=== PATIENT | female | born 1975 | race African-American/Black ===

== ENCOUNTER 2017-07-24 05:17 | Day surgery (SDC) | payer MEDICARE, MEDICAID ==
[2017-07-24] VITALS (8 sets, daily range): BP systolic 127–150; BP diastolic 75–82
[~2017-07-24] VITALS: Ht 162.6 cm; Wt 81.6 kg
[~2017-07-24 05:17] MED LIST: BENAZEPRIL HCL40 MG ORAL; CATAPRES0.1 MG ORAL; CLONIDINE0.1 MG ORAL; COLACE100 MG ORAL; COREG25 MG ORAL; COUMADIN10 MG ORAL; COUMADIN4 MG ORAL; HUMULIN 70100 UNIT/2 SUBQ; LIPITOR10 MG ORAL; METOPROLOL TART50 MG ORAL; MIRALAX17 GM ORAL; NIFEDICAL XL30 MG ORAL; NIFEDIPINE ER60 M2 ORAL; NORCO 5-325 TA1 EACH ORAL; NORVASC5 MG ORAL; NOVOLIN 70/305 UNIT1 SUBQ; OMEPRAZOLE20 M3 ORAL; PROTONIX40 M1 IV; PROTONIX40 MG ORAL; RANITIDINE HCL150 MG ORAL; REGLAN10 MG ORAL; RENVELA0.8 GM ORAL; RENVELA800 MG ORAL; SIMVASTATIN20 MG ORAL; SOMA250 MG PO; ZANTAC150 MG ORAL; ZOCOR20 MG ORAL; ZOFRAN ODT4 MG ORAL; ZOFRAN4 MG ORAL
[2017-07-24] MEDS ORDERED: Cyclopentolate 1% Opth Sol 2ml ONE (05:19)
[2017-07-24] MEDS ORDERED: Phenylephrine 2.5% Op 2ml Soln ONE (05:19)
[2017-07-24] MEDS ORDERED: Tropicamide 1% Opth 15ml Soln ONE (05:19)
[2017-07-24] MEDS ORDERED: Proparacaine 0.5% Opth Soln 15ml ONE (05:20)
[2017-07-24] MEDS ORDERED: Tropicamide 1% Opth 15ml Soln LEFT EYE SCH (06:00)
[2017-07-24] MEDS ORDERED: Cyclopentolate 1% Opth Sol 2ml LEFT EYE SCH (06:00)
[2017-07-24] MEDS ORDERED: Phenylephrine 2.5% Op 2ml Soln LEFT EYE SCH (06:00)
[2017-07-24] MEDS ORDERED: Proparacaine 0.5% Opth Soln 15ml LEFT EYE SCH (06:00)
[2017-07-24] MEDS ORDERED: BSS 500ml btl ONE (06:25)
[2017-07-24] MEDS ORDERED: Kenalog-40 1ml Vial ONE (06:26)
[2017-07-24] MEDS ORDERED: Pred Forte 1% Opth Susp 1ml ONE (06:26)
[2017-07-24] MEDS ORDERED: Maxitrol Opth Oint 3.5gm ONE (06:27)
[2017-07-24] MEDS ORDERED: Tetracaine 0.5% Opth 4ml Soln ONE (06:28)
[2017-07-24] MEDS ORDERED: EPINEPHrine 1mg/1ml Amp ONE (06:28)
[2017-07-24] MEDS ORDERED: Lidocaine 2% MPF 5ml Vial INJ ONE (06:28)
[2017-07-24] MEDS ORDERED: Dexamethasone 4mg/ml vial ONE (06:28)
[2017-07-24] MEDS ORDERED: Bupivacaine 0.75% 30ml vial INJ ONE (06:28)
[2017-07-24] MEDS ORDERED: BSS 15ml BTL ONE (06:28)
[2017-07-24] MEDS ORDERED: Povidone-Iodine 5% opth solution ONE (06:28)
[2017-07-24] MEDS ORDERED: Goniosol 2.5% Opth Soln - 15ml ONE (06:29)
--- NOTE | 2017-07-24 06:33 | Anethesia Preoperative Eval ---
Anesthesia Pre-op PMH/ROS General Date of Evaluation: Jul 24, 2017 Time of Evaluation: 06:31 Anesthesiologist: karen ASA Score: ASA 4 Mallampati Score Class I : Soft palate, uvula, fauces, pillars visible Class II: Soft palate, uvula, fauces visible Class III: Soft palate, base of uvula visible Class IV: Only hard plate visible Mallampati Classification: Class II Surgeon: xavi Diagnosis: hemorrhage left eye Surgical Procedure: vitrectomy Allergies: Coded Allergies: ASPIRIN (Verified Allergy, Severe, swallowing issue, 02/11/16) Past Medical History Cardiovascular: Reports: HTN, arrhythmia Pulmonary: Reports: asthma Gastrointestinal/Genitourinary: Reports: GERD, ESRD, other - gastritis Endocrine: Reports: hypothyroidism Musculoskeletal/Integumentary: Reports: other - amputations Other: obesity Anesthesia Pre-op Phys. Exam Physician Exam Last Vital Signs Date Time Temp Pulse Resp B/P (MAP) Pulse Ox O2 Delivery O2 Flow Rate FiO2 07/24/17 05:57 98.2 79 20 150/82 97 Room Air Constitutional: NAD Neurologic: CN 2-12 intact Cardiovascular: RRR, other - ghulam Respiratory: CTA Gastrointestinal: S/NT/ND Airway Exam Mallampati Score: Class II MO: full Neck: supple TMD: 2fb ROM: full Teeth: intact Anesthesia Pre-op A/P Labs Chemistry Test 07/24/17 05:50 Potassium Level Pending Risk Assessment & Plan Assessment: asa4 Plan: mac Status Change Before Surgery: No Pre-Antibiotics Drug: AVE Macias Jul 24, 2017 06:33
[2017-07-24] MEDS ORDERED: Sterile Water Irrig 1000ml IRRIG ONE (07:00)
[2017-07-24] MEDS ORDERED: fentaNYL 100 mcg/2 mL IV ONE (07:00)
[2017-07-24] MEDS ORDERED: Midazolam 2mg/2ml Inj ONE (07:00)
--- NOTE | 2017-07-24 07:19 | Pre-Procedure Note/Attestation ---
Pre-Procedure Note/Attestation Complete Prior to Procedure Planned Procedure: left Procedure Narrative: Vision loss due to VH OS Indications for Procedure Pre-Operative Diagnosis: PPV/EL/Gas OS Attestation I attest that I discussed the nature of the procedure; its benefits; risks and complications; and alternatives (and the risks and benefits of such alternatives ), prior to the procedure, with the patient (or the patient's legal civil rights representative). I attest that, if there was a reasonable possibility of needing a blood transfusion, the patient (or the patient's legal civil rights representative) was given the [facility] Services standardized written summary, pursuant to the Darin Amberley Blood Safety Act ([place] Health and Safety Code # 1645, as amended). I attest that I re-evaluated the patient just prior to the surgery and that there has been no change in the patient's H&P, except as documented below: Mikhail Cunningham M.D. Jul 24, 2017 07:19
--- NOTE | 2017-07-24 07:20 | Brief Operative Note ---
Immediate Post Operative Note Operative Note Pre-op Diagnosis: NCVH/PDR/TRD/Cataract OS Procedure: PPV/MP/EL/AFE/SO (1K) OS Post-op Diagnosis: Same Post-op Diagnosis: same as pre-op Surgeon: Marisa Anesthesia: local Specimen: none Complications: none Condition: stable Fluids: Minimal Estimated Blood Loss: minimal Drains: none Implant(s) used?: Yes - silicone oil Mikhail Cunningham M.D. Jul 24, 2017 07:20
--- NOTE | 2017-07-24 07:21 | Operative Note - PDOC ---
Operative Note Operative Note Pre-op Diagnosis: NCVH OS Procedure: PPV/EL/Gas OS Post-op Diagnosis: same as pre-op Anesthesia: local Specimen: none Complications: none Condition: stable Fluids: Minimal Estimated Blood Loss: minimal Drains: none Implant(s) used?: No Indications for Procedure Patient has decreased vision due to nonclearing vitreous hemorhage OS. Description of Procedure Location: [facility] [place] Pre-operative Diagnosis: 1. PDR/NCVH/TRD/Cataract, LEFT EYE Post-operative Diagnosis: Same Procedure: Pars plana vitrectomy, membrane peel, endolaser, air-fluid exchange , silicone oil (1K), LEFT EYE Surgeon: Mikhail Cunningham M.D. Anesthesia: Peribulbar Complications: None Indications for the procedure: The patient has vision loss due vitreous hemorrhage and presents today for surgery after review of the risks, benefits, alternative and signing informed consent into the medical chart. Procedure performed: The patient was met in the pre-operative area where informed consent was reviewed. The operative eye was verified, marked and dilated. The patient was transferred to the operative suite, where cardiopulmonary monitoring was established and peribulbar anesthetic was administered without complications. The eye was prepped and draped in sterile ophthalmic fashion. Under microscope visualization the 23 gauge infusion line was placed 4 millimeters inferotemporally. After placement of the tip in the vitreous cavity, the infusion line was turned on. The superotemporal and superonasal cannulas were placed. Under BIOM visualization, peripheral and core vitrectomy was performed. There was significant dense hemorrhage against the posterior lens capsule. As the vitreous hemorrhage was removed, active hemorrhage from the disc was noted. There was tractional detachment along the arcades. The membranes were peeled. Air-fluid exchange was performed due to active hemorrhaging. Endolaser was applied to the periphery. Fluid was filled and further vitrectomy was performed of the periphery, however, hemorrhage persisted. AFE was performed and SO was infused into the eye. The sclerotomies were sutured. The eye maintained normal intraocular pressure. Subconjunctival vancomycin and dexamethasone were administered. The lid speculum was removed. The eye was cleaned of prep and drape. Atropine drop and Maxitrol ointment was applied. A pressure patch was placed. The patient was turned over to the anesthesia team and transferred in stable condition to the PACU. Mikhail Cunningham M.D. Jul 24, 2017 07:21
[2017-07-24] MEDS ORDERED: DiphenhydrAMINE 50mg/ml Inj IVP PRN (07:45)
[2017-07-24] MEDS ORDERED: Midazolam 2mg/2ml Inj IVP PRN (07:45)
[2017-07-24] MEDS ORDERED: Atropine Inj 1mg/10ml Syr IV PRN (07:45)
[2017-07-24] MEDS ORDERED: fentaNYL 100 mcg/2 mL IV PRN (07:45)
--- NOTE | 2017-07-24 08:58 | Immediate Post-Op Evaluation ---
Immediate Post-Op Evalulation Immediate Post-Op Evalulation Procedure: vitrectomy left y Date of Evaluation: Jul 24, 2017 Time of Evaluation: 08:58 IV Fluids: 300ml ns Blood Products: none Estimated Blood Loss: negligible Blood Pressure Systolic: 134 Blood Pressure Diastolic: 78 Pulse Rate: 72 Respiratory Rate: 18 O2 Sat by Pulse Oximetry: 100 Temperature (Fahrenheit): 98.1 Pain Score (1-10): 0 Nausea: No Vomiting: No Complications none Patient Status: awake, reacts, patent Hydration Status: adequate Drug: AVE Macias Jul 24, 2017 08:58
--- NOTE | 2017-07-24 10:35 | 48 Hour Post Anesthesia Eval ---
Post Anesthesia Evaluation Procedure: vitrectomy left eye Date of Evaluation: Jul 24, 2017 Time of Evaluation: 10:34 Blood Pressure Systolic: 136 0: 77 Pulse Rate: 77 Respiratory Rate: 18 Temperature (Fahrenheit): 98.4 O2 Sat by Pulse Oximetry: 100 Airway: patent Nausea: No Vomiting: No Pain Intensity: 0 Hydration Status: adequate Cardiopulmonary Status: stable Mental Status/LOC: patient returned to baseline Post-Anesthesia Complications: none Follow-up care needed: N/A AVE CADET Jul 24, 2017 10:35
== END 2017-07-24 12:30 | disposition home or self-care (01) ==
LOC: SUR 05:17
DX: H43.12 Vitreous hemorrhage, left eye (principal); H54.7 Unspecified visual loss; H57.8 Other specified disorders of eye and adnexa; I10 Essential (primary) hypertension; K21.9 Gastro-esophageal reflux disease without esophagitis; I13.2 Hypertensive heart and chronic kidney disease with heart failure and with stage 5 chronic kidney disease, or end stage renal disease; E11.22 Type 2 diabetes mellitus with diabetic chronic kidney disease; N18.6 End stage renal disease; I50.22 Chronic systolic (congestive) heart failure; Z95.2 Presence of prosthetic heart valve; E66.9 Obesity, unspecified; Z68.30 Body mass index [BMI] 30.0-30.9, adult; I47.1 Supraventricular tachycardia; I73.9 Peripheral vascular disease, unspecified; E83.39 Other disorders of phosphorus metabolism; D50.9 Iron deficiency anemia, unspecified; M86.9 Osteomyelitis, unspecified; Z82.49 Family history of ischemic heart disease and other diseases of the circulatory system; Z83.3 Family history of diabetes mellitus; Z84.1 Family history of disorders of kidney and ureter; Z88.6 Allergy status to analgesic agent; Z90.721 Acquired absence of ovaries, unilateral; Z86.73 Personal history of transient ischemic attack (TIA), and cerebral infarction without residual deficits; Z90.49 Acquired absence of other specified parts of digestive tract; Z90.710 Acquired absence of both cervix and uterus; Z89.511 Acquired absence of right leg below knee; Z89.422 Acquired absence of other left toe(s); Z79.4 Long term (current) use of insulin; Z79.01 Long term (current) use of anticoagulants
CPT/HCPCS: 67041; 82962; J0171; J1100; J2250; J2405; J3010; J3370; J3490; 94003; 94150

== ENCOUNTER 2017-12-16 08:46 | Day surgery (SDC) | payer MEDICARE, MEDICAID ==
[~2017-12-16] VITALS: Ht 162.6 cm; Wt 77.1 kg
[2017-12-16] VITALS (8 sets, daily range): BP systolic 144–164; BP diastolic 81–90
[2017-12-16] MEDS ORDERED: Proparacaine 0.5% Opth Soln 15ml ONE (09:29)
[2017-12-16] MEDS ORDERED: Phenylephrine 2.5% Op 2ml Soln ONE (09:29)
[2017-12-16] MEDS ORDERED: Tropicamide 1% Opth 15ml Soln ONE (09:29)
[2017-12-16] MEDS ORDERED: Cyclopentolate 1% Opth Sol 2ml ONE (09:29)
[2017-12-16] MEDS ORDERED: Cyclopentolate 1% Opth Sol 2ml LEFT EYE ONE (11:00)
[2017-12-16] MEDS ORDERED: Phenylephrine 2.5% Op 2ml Soln LEFT EYE ONE (11:00)
[2017-12-16] MEDS ORDERED: Proparacaine 0.5% Opth Soln 15ml LEFT EYE ONE (11:00)
[2017-12-16] MEDS ORDERED: Tropicamide 1% Opth 15ml Soln LEFT EYE ONE (11:00)
[2017-12-16 11:20] LABS: INR 1.3 (0.9-1.1)
[2017-12-16 11:24] LABS: ANION GAP 8 mmol/L (5-15); BLOOD UREA NITROGEN 39 mg/dL (7-18); CALCIUM 9.4 MG/DL (8.5-10.1); CARBON DIOXIDE 32 MMOL/L (21-32); CHLORIDE 97 MMOL/L (98-107); CREATININE 6.6 MG/DL (0.55-1.30); POTASSIUM 3.8 MMOL/L (3.5-5.1); SODIUM 137 MMOL/L (136-145)
[2017-12-16] MEDS ORDERED: BSS 500ml btl ONE ×2 (11:35→12:31)
[2017-12-16] MEDS ORDERED: Kenalog-40 1ml Vial ONE (11:35)
[2017-12-16] MEDS ORDERED: Pred Forte 1% Opth Susp 1ml ONE (11:35)
[2017-12-16] MEDS ORDERED: Dexamethasone 4mg/ml vial ONE (11:36)
[2017-12-16] MEDS ORDERED: Bupivacaine 0.75% 30ml vial INJ ONE (11:36)
[2017-12-16] MEDS ORDERED: EPINEPHrine 1mg/1ml Amp ONE (11:36)
[2017-12-16] MEDS ORDERED: Lidocaine 2% MPF 5ml Vial INJ ONE (11:36)
[2017-12-16] MEDS ORDERED: Maxitrol Opth Oint 3.5gm ONE (11:36)
[2017-12-16] MEDS ORDERED: Tetracaine 0.5% Opth 4ml Soln ONE (11:36)
[2017-12-16] MEDS ORDERED: Acetylcholine Injection (OR) ONE (11:37)
[2017-12-16] MEDS ORDERED: Goniosol 2.5% Opth Soln - 15ml ONE (11:37)
[2017-12-16] MEDS ORDERED: BSS 15ml BTL ONE (11:37)
[2017-12-16] MEDS ORDERED: Sodium Hyaluronate 10 mg/ml 0.85ml ONE (11:37)
[2017-12-16] MEDS ORDERED: Povidone-Iodine 5% opth solution ONE (11:38)
--- NOTE | 2017-12-16 11:38 | Anethesia Preoperative Eval ---
Anesthesia Pre-op PMH/ROS General Date of Evaluation: Dec 16, 2017 Anesthesiologist: Miki ASA Score: ASA 4 Mallampati Score Class I : Soft palate, uvula, fauces, pillars visible Class II: Soft palate, uvula, fauces visible Class III: Soft palate, base of uvula visible Class IV: Only hard plate visible Mallampati Classification: Class II Surgeon: Marisa Diagnosis: Left vitreal hemmorhage Surgical Procedure: Left eye vitrectomy Anesthesia History: none Social History: alcohol use, drug use - h/o multi substance abuse Family History: no anesthesia problems Allergies: Coded Allergies: No Known Allergies (Unverified , 12/16/17) Medications: see eMAR Past Medical History Cardiovascular: Reports: HTN, CAD - s/p triple bypass surgery in 2016, arrhythmia - aflutter, other - HLD, Denies: AR, valve dz Pulmonary: Reports: asthma, Denies: COPD, CURRY, other Gastrointestinal/Genitourinary: Reports: GERD, ESRD - on dialysis T, , Sat- last dialysis today, other - gastritis, Denies: CRI Neurologic/Psychiatric: Reports: depression/anxiety, Denies: dementia, CVA, TIA, other Endocrine: Reports: DM, Denies: hypothyroidism, steroids, other HEENT: Reports: glaucoma - bilateral, Denies: cataract (L), cataract (R), SHISHMAREF IRA (L), SHISHMAREF IRA (R), other Hematology/Immune: Reports: anemia, bleeding disorder - on warfarin, Denies: DVT, other Musculoskeletal/Integumentary: Reports: OA, DJD, Denies: RA, DDD, edema, other Other: obesity PSxH Narrative: Bilateral hip sx, cholecystectomy, c/s x3, right BKA Anesthesia Pre-op Phys. Exam Physician Exam Last Vital Signs Date Time Temp Pulse Resp B/P (MAP) Pulse Ox O2 Delivery O2 Flow Rate FiO2 12/16/17 10:20 97.2 78 18 157/90 100 Room Air Constitutional: NAD Cardiovascular: other - irregular Respiratory: other - decreased breath sounds bilaterally Airway Exam Mallampati Score: Class III MO: limited ROM: limited Anesthesia Pre-op A/P Labs Hematology Test 12/16/17 11:20 White Blood Count Pending Red Blood Count Pending Hemoglobin Pending Hematocrit Pending Mean Corpuscular Volume Pending Mean Corpuscular Hemoglobin Pending Mean Corpuscular Hemoglobin Concent Pending Red Cell Distribution Width Pending Platelet Count Pending Mean Platelet Volume Pending Neutrophils (%) (Auto) Pending Lymphocytes (%) (Auto) Pending Monocytes (%) (Auto) Pending Eosinophils (%) (Auto) Pending Basophils (%) (Auto) Pending Coagulation Test 12/16/17 10:50 Prothrombin Time 13.7 SEC (9.30-11.50) H Prothromb Time International Ratio 1.3 (0.9-1.1) H Activated Partial Thromboplast Time 32 SEC (23-33) Chemistry Test 12/16/17 10:50 Sodium Level 137 MMOL/L (136-145) Potassium Level 3.8 MMOL/L (3.5-5.1) Chloride Level 97 MMOL/L (98-107) L Carbon Dioxide Level 32 MMOL/L (21-32) Anion Gap 8 mmol/L (5-15) Blood Urea Nitrogen 39 mg/dL (7-18) H Creatinine 6.6 MG/DL (0.55-1.30) H Estimat Glomerular Filtration Rate 8.2 mL/min (>60) Glucose Level 90 MG/DL (74-106) Calcium Level 9.4 MG/DL (8.5-10.1) Human Chorionic Gonadotropin, Qual Negative Serum Test Test 12/16/17 10:50 Human Chorionic Gonadotropin, Qual Negative Risk Assessment & Plan Assessment: ASA IV Plan: MAC Status Change Before Surgery: No Pre-Antibiotics Drug: N/A ARMAND LAWS M.D. Dec 16, 2017 11:38
[2017-12-16 11:53] LABS: HEMATOCRIT 33.9 % (37.0-47.0); HEMOGLOBIN 10.9 G/DL (12.0-16.0); MEAN CORPUSCULAR VOLUME 89 FL (80-99); PLATELET COUNT 74 K/UL (150-450); RED BLOOD COUNT 3.81 M/UL (4.20-5.40); RED CELL DISTRIBUTION WIDTH 13.7 % (11.6-14.8); WHITE BLOOD COUNT 6.9 K/UL (4.8-10.8)
[2017-12-16] MEDS ORDERED: Midazolam 2mg/2ml Inj ONE (12:00)
[2017-12-16] MEDS ORDERED: NS Irrig 1000ml ONE (12:00)
[2017-12-16] MEDS ORDERED: LR 1000ml ONE (12:00)
[2017-12-16] MEDS ORDERED: Propofol 200mg/20ml IV ONE (12:00)
[2017-12-16] MEDS ORDERED: Sterile Water Irrig 1000ml IRRIG ONE (12:00)
[2017-12-16] MEDS ORDERED: DiphenhydrAMINE 50mg/ml Inj ONE (12:20)
--- NOTE | 2017-12-16 12:21 | Pre-Procedure Note/Attestation ---
Pre-Procedure Note/Attestation Complete Prior to Procedure Procedure Narrative: PD plan fo PPV OS Indications for Procedure Pre-Operative Diagnosis: PDR/VH/SO OS Attestation I attest that I discussed the nature of the procedure; its benefits; risks and complications; and alternatives (and the risks and benefits of such alternatives ), prior to the procedure, with the patient (or the patient's legal telesales representative). I attest that, if there was a reasonable possibility of needing a blood transfusion, the patient (or the patient's legal telesales representative) was given the [facility] Services standardized written summary, pursuant to the Darin Redan Blood Safety Act ([place] Health and Safety Code # 1645, as amended). I attest that I re-evaluated the patient just prior to the surgery and that there has been no change in the patient's H&P, except as documented below: Mikhail Cunningham M.D. Dec 16, 2017 12:21
--- NOTE | 2017-12-16 12:23 | Operative Note - PDOC ---
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 After review of the risks, benefits, alternative and the patient signed informed consent into the medical chart. Description of Procedure Procedure performed: The patient was met in the pre-op area where informed consent was reviewed. The operative eye was verified, marked and dilated. The patient was transferred to the operative suite, where cardiopulmonary monitoring was established and peribulbar anesthetic was administered without complications. The eye was prepped and draped in sterile ophthalmic fashion. Under microscope visualization the 23 gauge infusion line was placed inferotemporally. After visualization of the tip in the vitreous cavity, the infusion line was turned on. The superotemporal and superonasal cannulas were placed. Under BIOM visualization, the posterior pole was visualized and nasal TRD with traction was noted. The silicone oil was removed. Inspection of the posterior pole revealed extensive tractional membranes and gliosis with tractional retinal detachment nasally. The traction membranes were removed and released. A nasal retinotomy was created and SRF was drained. Endolaser was applied to the RTO and to complete the PRP laser that was limited due to VH previously. Air-fluid exchange was performed. SF6 gas was infused. The cannulas were removed and sclerotomies were sutured. The eye maintained normal intraocular pressure. Subconjunctival vancomycin and dexamethasone were administered. The lid speculum was removed. The eye was cleaned of prep and drape. Atropine drop and Maxitrol ointment was applied. A pressure patch was placed. The patient was turned over to the anesthesia team and transferred in stable condition to the PACU. Mikhail Cunningham M.D. Dec 16, 2017 12:23
--- NOTE | 2017-12-16 12:23 | Brief Operative Note ---
Immediate Post Operative Note Operative Note Pre-op Diagnosis: PDR/VH/SO OS Procedure: PPV/SOR/EL/AFE/SF6 OS Post-op Diagnosis: PDR/VH/Nasal TRD/SO/Cataract OS Surgeon: Marisa Anesthesia: local Specimen: none Complications: none Condition: stable Fluids: min Estimated Blood Loss: minimal Drains: none Implant(s) used?: Mikhail Mcclain M.D. Dec 16, 2017 12:23
--- NOTE | 2017-12-16 12:52 | Immediate Post-Op Evaluation ---
Immediate Post-Op Evalulation Immediate Post-Op Evalulation Procedure: Left eye vitrectomy Date of Evaluation: Dec 16, 2017 Time of Evaluation: 13:43 IV Fluids: 200 Blood Products: 0 Estimated Blood Loss: 0 Urinary Output: 0 Blood Pressure Systolic: 151 Blood Pressure Diastolic: 85 Pulse Rate: 84 Respiratory Rate: 16 O2 Sat by Pulse Oximetry: 100 Temperature (Fahrenheit): 98.3 Pain Score (1-10): 0 Nausea: No Vomiting: No Complications 0 Patient Status: awake, reacts, patent, none Hydration Status: adequate Drug: N/A ARMAND LAWS M.D. Dec 16, 2017 12:52
--- NOTE | 2017-12-16 12:52 | 48 Hour Post Anesthesia Eval ---
Post Anesthesia Evaluation Procedure: Left eye vitrectomy Date of Evaluation: Dec 16, 2017 Airway: patent Nausea: No Vomiting: No Pain Intensity: 0 Hydration Status: adequate Cardiopulmonary Status: at baeline Mental Status/LOC: patient returned to baseline Post-Anesthesia Complications: 0 Follow-up care needed: ready to discharge ARMAND LAWS M.D. Dec 16, 2017 12:52
[2017-12-16] MEDS ORDERED: LR 1000ml 1,000 ML IVLG SCH (12:53)
[2017-12-16] MEDS ORDERED: DiphenhydrAMINE 50mg/ml Inj IVP PRN (13:00)
[2017-12-16] MEDS ORDERED: COUMADIN7.5 MG ORAL (14:51)
--- NOTE | 2017-12-17 15:11 | Cardiology Report ---
APPROVED REPORT EKG Measurement Heart [id number] Normal sinus rhythm Septal infarct, age undetermined Abnormal ECG
== END 2017-12-16 14:50 | disposition home or self-care (01) ==
LOC: SUR 08:46
DX: H43.12 Vitreous hemorrhage, left eye (principal); E11.3599 Type 2 diabetes mellitus with proliferative diabetic retinopathy without macular edema, unspecified eye; I11.9 Hypertensive heart disease without heart failure; E78.5 Hyperlipidemia, unspecified; F41.9 Anxiety disorder, unspecified; F32.9 Major depressive disorder, single episode, unspecified; E11.9 Type 2 diabetes mellitus without complications; Z90.49 Acquired absence of other specified parts of digestive tract; Z89.511 Acquired absence of right leg below knee; H26.9 Unspecified cataract; Z79.4 Long term (current) use of insulin
CPT/HCPCS: 36415; 67015; 67025; 67040; 80048; 82962; 84703; 85007; 85025; 85610; 85730; 93005; J0171; J1100; J1200; J2250; J2704; J3370; J3490; J7120; 94003; 94150

== ENCOUNTER 2018-11-02 23:31 | Emergency (ER) | payer MEDICARE, MEDICAID ==
[~2018-11-02] VITALS: Ht 162.6 cm; Wt 77.1 kg
[~2018-11-02 23:31] MED LIST changes: +COUMADIN7.5 MG ORAL
[2018-11-02 23:40] VITALS: BP 173/89
--- NOTE | 2018-11-02 23:45 | NUR ---
ED Nurse Note: Patient presents with complaints of flu-like symptoms, body aches chest pain.
[2018-11-03] MEDS ORDERED: Acetaminophen 500mg (ES) tab ORAL ONE (00:30)
[2018-11-03] MEDS ORDERED: Morphine Sulfate 4mg/ml Inj (IV/IM USE ONLY) IVP ONE (00:30)
--- NOTE | 2018-11-03 00:56 | NUR ---
ED Nurse Note: Patient is resting quietly with no s/s of acute distress.
--- NOTE | 2018-11-03 01:16 | Emergency Room Report ---
History of Present Illness General Chief Complaint: Flu Like Symptoms Source: Patient, Medical Record Present Illness HPI Is a 43-year-old female with end-stage renal disease on hemodialysis. Her days are Friday, and Friday. She presents with chief complaint short of breath and cough for the last week. Worse in the last few days. No nausea no vomiting. Now with back pain and subjective fever. Now coughing with sputum. Has chest pain from coughing. Nothing made it better. Inspiration and it worse. Allergies: Coded Allergies: No Known Allergies (Unverified , 12/16/17) Patient History Past Medical History: see triage record, old chart reviewed, DM, HTN Past Surgical History: other - Right BKA, left TMA Pertinent Family History: none Social History: Denies: smoking Last Menstrual Period: 10/30/2017 Now: No : 5 Para: 3 Immunizations: other Reviewed Nursing Documentation: PMH: Agreed; PSxH: Agreed Nursing Documentation-PMH Hx Cardiac Problems: Yes Hx Hypertension: Yes Hx Pacemaker: No Hx Asthma: Yes Hx COPD: No Hx Diabetes: Yes - since first . On Insulin Hx Cancer: No Hx Gastrointestinal Problems: Yes Hx Dialysis: Yes - , , [facility]IALYSIS . LEFT UPPER ARM AV SHUNT Hx Neurological Problems: No Hx Cerebrovascular Accident: No Hx Seizures: No Hx Concentration Difficulty: Yes Hx Vertigo: Yes Hx Dizziness: Yes Hx Numbness: Yes Hx Weakness: Yes Hx Fatigue: Yes Review of Systems Eye: Denies: eye pain, blurred vision ENT: Denies: ear pain, nose congestion, throat swelling Respiratory: Reports: cough, shortness of breath Cardiovascular: Denies: chest pain, palpitations Gastrointestinal: Denies: abdominal pain, diarrhea, nausea, vomiting Musculoskeletal: Denies: back pain, joint pain Skin: Denies: rash Neurological: Denies: headache, numbness Endocrine: Denies: increased thirst, increased urine Hematologic/Lymphatic: Denies: easy bruising All Other Systems: negative except mentioned in HPI Physical Exam Vital Signs Date Time Temp Pulse Resp B/P (MAP) Pulse Ox O2 Delivery O2 Flow Rate FiO2 11/02/18 23:40 98.4 94 22 173/89 97 Room Air vital signs with high blood pressure Sp02 EP Interpretation: reviewed, normal General Appearance: well appearing, no apparent distress, alert Head: normocephalic, atraumatic Eyes: bilateral eye PERRL, bilateral eye EOMI ENT: hearing grossly normal, normal pharynx Neck: full range of motion, supple, no meningismus Respiratory: chest non-tender, normal breath sounds, rhonchi Cardiovascular #1: regular rate, rhythm, no murmur Gastrointestinal: normal bowel sounds, non tender, no mass, no organomegaly, no bruit, non-distended Musculoskeletal: back normal, gait/station normal, normal range of motion Psychiatric: mood/affect normal Skin: warm/dry Medical Decision Making Diagnostic Impression: Primary Impression: Upper respiratory infection Qualified Codes: J06.9 - Acute upper respiratory infection, unspecified ER Course Patient with an upper respiratory infection. Because getting worse and she has a history of renal disease and diabetes, we'll put on antibiotics. His of ACS, PE, dissection. She scheduled for dialysis in a couple of hours. Potassium is normal. Lab Results Impression labs with renal disease EKG Diagnostic Results Rate: normal Rhythm: NSR ST Segments: other - NSST changes Rhythm Strip Diag. Results Rhythm Strip Time: 01:15 EP Interpretation: yes Rate: 85 Rhythm: NSR, no PVC's, no ectopy, other Chest X-Ray Diagnostic Results Chest X-Ray Diagnostic Results : Chest X-Ray Ordered: Yes # of Views/Limited/Complete: 1 View Indication: Shortness of Breath EP Interpretation: Yes Interpretation: no pneumothorax, other - CM with left effusion Impression: Other - CM, left effusion Electronically Signed by: Sina Cleaning MD Last Vital Signs Date Time Temp Pulse Resp B/P (MAP) Pulse Ox O2 Delivery O2 Flow Rate FiO2 11/02/18 23:40 98.4 94 22 173/89 97 Room Air Status: improved Disposition: HOME, SELF-CARE Condition: Stable Scripts Azithromycin* (ZITHROMAX*) 250 Mg Tablet 250 MG ORAL DAILY, #6 TAB 0 Refills Take two tables once daily for 1 day, then one tablet once daily for 4 days. Prov: Sina Cleaning MD 11/03/18 Ibuprofen* (MOTRIN*) 600 Mg Tablet 600 MG ORAL THREE TIMES A DAY, #30 TAB 0 Refills Prov: Sina Cleaning MD 11/03/18 Referrals: Thiago Galan MD (PCP) Additional Instructions: Go to dialysis as scheduled today. Return if symptom worsen. Follow-up your . in 3-5 days. Sina Cleaning MD Nov 03, 2018 01:16
[2018-11-03 01:17] LABS: BASOPHILS % (AUTO) 0.7 % (0.0-2.0); EOSINOPHILS % (AUTO) 0.3 % (0.0-3.0); HEMATOCRIT 33.7 % (37.0-47.0); HEMOGLOBIN 10.5 G/DL (12.0-16.0); LYMPHOCYTES % (AUTO) 14.6 % (20.0-45.0); MEAN CORPUSCULAR VOLUME 90 FL (80-99); MONOCYTES % (AUTO) 7.5 % (1.0-10.0); NEUTROPHILS % (AUTO) 76.9 % (45.0-75.0); PLATELET COUNT 128 K/UL (150-450); RED BLOOD COUNT 3.74 M/UL (4.20-5.40); RED CELL DISTRIBUTION WIDTH 15.5 % (11.6-14.8)
[2018-11-03 01:27] LABS: ANION GAP 15 mmol/L (5-15); BLOOD UREA NITROGEN 58 mg/dL (7-18); CALCIUM 9.5 MG/DL (8.5-10.1); CARBON DIOXIDE 24 MMOL/L (21-32); CHLORIDE 101 MMOL/L (98-107); CREATININE 11.9 MG/DL (0.55-1.30); SODIUM 140 MMOL/L (136-145)
[2018-11-03 01:34] LABS: INR 1.1 (0.9-1.1)
[2018-11-03 01:40] LABS: ALANINE AMINOTRANSFERASE 15 U/L (12-78); ALBUMIN 3.3 G/DL (3.4-5.0); ALBUMIN/GLOBULIN RATIO 0.7 (1.0-2.7); ALKALINE PHOSPHATASE 202 U/L (46-116); ASPARTATE AMINO TRANSFERASE 15 U/L (15-37); BILIRUBIN,TOTAL 0.5 MG/DL (0.2-1.0); CKMB 2.9 NG/ML (0.0-3.6); CREATINE KINASE 102 U/L (26-308)
--- NOTE | 2018-11-03 01:59 | NUR ---
ED Nurse Note: Patient is resting.
[2018-11-03] MEDS ORDERED: cefTRIAXone 1 GM in NS 55 ML IVPB ONE (02:00)
[2018-11-03] MEDS ORDERED: IBUPROFEN600 MG ORAL (02:04)
[2018-11-03] MEDS ORDERED: ZITHROMAX250 MG ORAL (02:04)
[2018-11-03] MEDS ORDERED: DiphenhydrAMINE 50mg/ml Inj IVP ONE (02:45)
[2018-11-03 02:58] VITALS: BP_SYST 86
--- NOTE | 2018-11-03 03:00 | NUR ---
ED Nurse Note: Patient cleared for discharge by [facility], patient is ambulatory with steady gait using right leg prosthesis. Patient is A&Ox4, no complaints of pain or discomfort. Patient aditi was treated with benadryl just before discharge. Patient ID band and IV were removed. Patient will be transported by her son.
--- NOTE | 2018-11-03 13:06 | Diagnostic Imaging Report ---
Indication: Dyspnea Comparison: 04/23/2016 A single view chest radiograph was obtained. Findings: There is blunting of the left costophrenic angle. Heart size is normal. Sternotomy noted. Bones are unremarkable. IMPRESSION: Left pleural effusion suspected. Underlying parenchymal disease such as pneumonia not excluded
--- NOTE | 2018-11-03 14:26 | Cardiology Report ---
APPROVED REPORT EKG Measurement Heart [id number] Normal sinus rhythm Septal infarct, age undetermined Abnormal ECG T inversion cannot exclude inferolateral ischemic changes
== END 2018-11-03 03:03 | disposition home or self-care (01) ==
LOC: EMR 23:59
DX: I10 Essential (primary) hypertension (principal); J06.9 Acute upper respiratory infection, unspecified; J45.909 Unspecified asthma, uncomplicated; I12.0 Hypertensive chronic kidney disease with stage 5 chronic kidney disease or end stage renal disease; E11.22 Type 2 diabetes mellitus with diabetic chronic kidney disease; N18.6 End stage renal disease; Z99.2 Dependence on renal dialysis; Z79.4 Long term (current) use of insulin; Z89.511 Acquired absence of right leg below knee
CPT/HCPCS: 36415; 71045; 80053; 82550; 82553; 83605; 84484; 85025; 85610; 85730; 86710; 87040; 93005; 96365; 96375; 99284; J0696; J2270; J2405

== ENCOUNTER 2019-01-08 16:17 | Inpatient (IN) | payer MEDICARE, MEDICAID ==
[~2019-01-08] VITALS: Ht 162.6 cm; Wt 76.2 kg
[~2019-01-08 16:17] MED LIST changes: +IBUPROFEN600 MG ORAL; +ZITHROMAX250 MG ORAL
[2019-01-08] MEDS ORDERED: UNOBMED (16:39)
[2019-01-08 16:46] VITALS: BP 133/73
--- NOTE | 2019-01-08 16:50 | NUR ---
ED Nurse Note: pt states she came to ED c/o chest pain, having couple days but started yesterday during dialysis and continued. pt states she has cough and it worsens chest pain, has headache but denies sob. 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 NSR on satellite project site monitor, VSS, will cont monitor.
--- NOTE | 2019-01-08 16:54 | NUR ---
ED Nurse Note: intervention/note done by Corinna RENO.
[2019-01-08] MEDS ORDERED: Aspirin Baby 81mg ORAL ONE (17:15)
--- NOTE | 2019-01-08 17:26 | Emergency Room Report ---
History of Present Illness General Chief Complaint: Chest Pain Source: Patient, Medical Record Present Illness HPI Patient has a history renal failure and is on dialysis. Patient's distal I lies on Tuesdays and Saturdays. Patient states that during dialysis on she began to develop acute onset of chest discomfort. She has intermittent chest pains become worse today. She complains of some shortness of breath associated with this as well. Patient states that she has extensive cardiac disease. She also has history of diabetes as well as renal failure. 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 Patient denies any other injuries. Denies any fever cough runny nose or sore throat. Symptoms noted to be severe. Patient states her primary care physician is Dr. Thiago Galan. No other modifying factors. No other associated signs and symptoms. No other complaints were noted. Allergies: Coded Allergies: No Known Allergies (Unverified , 12/16/17) Patient History Past Medical History: DM, HTN, CAD, asthma, renal disease, dialysis Past Surgical History: other - Cardiac surgery Social History: Denies: smoking, alcohol use, drug use Last Menstrual Period: 01/03/19 Reviewed Nursing Documentation: PMH: Agreed; PSxH: Agreed Nursing Documentation-PMH Past Medical History: No History, Except For Hx Cardiac Problems: Yes Hx Hypertension: Yes Hx Pacemaker: No Hx Asthma: Yes Hx COPD: No Hx Diabetes: Yes - since first . On Insulin Hx Cancer: No Hx Gastrointestinal Problems: Yes Hx Dialysis: Yes - , , [facility]ST DIALYSIS . LEFT UPPER ARM AV SHUNT Hx Neurological Problems: No Hx Cerebrovascular Accident: No Hx Seizures: No Hx Concentration Difficulty: Yes Hx Vertigo: Yes Hx Dizziness: Yes Hx Numbness: Yes Hx Weakness: Yes Hx Fatigue: Yes Review of Systems All Other Systems: negative except mentioned in HPI Physical Exam Vital Signs Date Time Temp Pulse Resp B/P (MAP) Pulse Ox O2 Delivery O2 Flow Rate FiO2 01/08/19 16:20 98.1 92 21 132/73 100 Room Air Sp02 EP Interpretation: reviewed, normal General Appearance: alert, moderate distress Head: atraumatic Eyes: bilateral eye normal inspection ENT: normal ENT inspection, hearing grossly normal, normal voice Neck: normal inspection, full range of motion, supple, no bony tend Respiratory: normal inspection, no retraction, no wheezing, decreased breath sounds Cardiovascular #1: regular rate, rhythm, no edema Gastrointestinal: normal inspection, normal bowel sounds, non tender, soft, no guarding, no hernia Genitourinary: no CVA tenderness Musculoskeletal: back normal, other - Bilateral lower extrem amputations Neurologic: normal inspection, alert, responsive, speech normal Psychiatric: normal inspection, judgement/insight normal, mood/affect normal Skin: normal inspection, normal color, no rash Medical Decision Making Diagnostic Impression: Primary Impression: Renal failure Additional Impressions: ACS (acute coronary syndrome) ESRD (end stage renal disease) on dialysis Pleural effusion Respiratory distress ER Course Patient presents emergency department today complaining of shortness of breath. Differential diagnoses include acute pneumonia, CHF, acute coronary syndrome, pneumothorax, asthma, COPD flare, just to name a few.Given the severity of the patient's presentation I felt this is a highly complex patient. This patient required extensive workup. Patient's laboratory workup shows slight elevation troponin but could be prerenal. Given patient's history x-rays were obtained x- ray shows evidence pleural effusion. Given patient's presentation of chest pain shortness breath I felt the patient require admission. Case was discussed in detail with Dr. Thiago Galan patient will be admitted to telemetry for further treatment. Labs Test 01/08/19 17:18 White Blood Count 9.0 K/UL (4.8-10.8) Red Blood Count 4.02 M/UL (4.20-5.40) Hemoglobin 11.1 G/DL (12.0-16.0) Hematocrit 37.0 % (37.0-47.0) Mean Corpuscular Volume 92 FL (80-99) Mean Corpuscular Hemoglobin 27.5 PG (27.0-31.0) Mean Corpuscular Hemoglobin Concent 29.9 G/DL (32.0-36.0) Red Cell Distribution Width 18.1 % (11.6-14.8) Platelet Count 96 K/UL (150-450) Mean Platelet Volume 9.8 FL (6.5-10.1) Neutrophils (%) (Auto) % (45.0-75.0) Lymphocytes (%) (Auto) % (20.0-45.0) Monocytes (%) (Auto) % (1.0-10.0) Eosinophils (%) (Auto) % (0.0-3.0) Basophils (%) (Auto) % (0.0-2.0) Differential Total Cells Counted 100 Neutrophils % (Manual) 69 % (45-75) Lymphocytes % (Manual) 21 % (20-45) Monocytes % (Manual) 7 % (1-10) Eosinophils % (Manual) 3 % (0-3) Basophils % (Manual) 0 % (0-2) Band Neutrophils 0 % (0-8) Platelet Estimate Decreased Platelet Morphology Normal Polychromasia 1+ Hypochromasia 1+ Anisocytosis 1+ Spherocytes Occasional Target Cells 1+ Sodium Level 138 MMOL/L (136-145) Potassium Level 4.0 MMOL/L (3.5-5.1) Chloride Level 101 MMOL/L (98-107) Carbon Dioxide Level 27 MMOL/L (21-32) Anion Gap 10 mmol/L (5-15) Blood Urea Nitrogen 43 mg/dL (7-18) Creatinine 8.3 MG/DL (0.55-1.30) Estimat Glomerular Filtration Rate 6.4 mL/min (>60) Glucose Level 305 MG/DL (74-106) Calcium Level 9.3 MG/DL (8.5-10.1) Total Bilirubin 0.5 MG/DL (0.2-1.0) Aspartate Amino Transf (AST/SGOT) 15 U/L (15-37) Alanine Aminotransferase (ALT/SGPT) 28 U/L (12-78) Alkaline Phosphatase 216 U/L (46-116) Total Creatine Kinase 53 U/L (26-308) Creatine Kinase MB 2.5 NG/ML (0.0-3.6) Creatine Kinase MB Relative Index 4.7 Troponin I 0.048 ng/mL (0.000-0.056) Total Protein 7.0 G/DL (6.4-8.2) Albumin 3.2 G/DL (3.4-5.0) Globulin 3.8 g/dL Albumin/Globulin Ratio 0.8 (1.0-2.7) EKG Diagnostic Results Rate: normal Rhythm: NSR ST Segments: no acute changes Other Impression and poor R-wave progression Rhythm Strip Diag. Results EP Interpretation: yes Rate: 89 Rhythm: NSR, no PVC's, no ectopy Chest X-Ray Diagnostic Results Chest X-Ray Diagnostic Results : Chest X-Ray Ordered: Yes # of Views/Limited/Complete: 1 View Indication: Shortness of Breath EP Interpretation: Yes Interpretation: other - Left pleural effusion, cardiomegaly, no free air Impression: Other - Pleural effusion Electronically Signed by: Electronically signed by Travis Brothers MD Last Vital Signs Date Time Temp Pulse Resp B/P (MAP) Pulse Ox O2 Delivery O2 Flow Rate FiO2 01/08/19 16:46 97.3 86 18 133/73 98 Room Air Status: improved Disposition: ADMITTED INPATIENT Condition: Serious Travis Brothers MD Jan 08, 2019 17:26
[2019-01-08 17:49] LABS: HEMOGLOBIN 11.1 G/DL (12.0-16.0); MEAN CORPUSCULAR VOLUME 92 FL (80-99); PLATELET COUNT 96 K/UL (150-450); RED BLOOD COUNT 4.02 M/UL (4.20-5.40); RED CELL DISTRIBUTION WIDTH 18.1 % (11.6-14.8)
[2019-01-08 18:07] LABS: ANION GAP 10 mmol/L (5-15); BLOOD UREA NITROGEN 43 mg/dL (7-18); CALCIUM 9.3 MG/DL (8.5-10.1); CARBON DIOXIDE 27 MMOL/L (21-32); CHLORIDE 101 MMOL/L (98-107); CREATININE 8.3 MG/DL (0.55-1.30); SODIUM 138 MMOL/L (136-145)
[2019-01-08] MEDS ORDERED: WARFARIN SODIUM10 MG ORAL (18:08)
[2019-01-08] MEDS ORDERED: RENVELA800 MG ORAL (18:09)
--- NOTE | 2019-01-08 18:13 | Diagnostic Imaging Report ---
EXAM: XR Chest, 1 View CLINICAL HISTORY: COUGH TECHNIQUE: Frontal view of the chest. COMPARISON: No relevant prior studies available. FINDINGS: Lungs: Confluent opacities in the left lower hemithorax that may be from pleural and parenchymal disease. Pleural space: As above. No pneumothorax. Heart: Large cardiac silhouette. Surgical changes. Mediastinum: Unremarkable. Bones/joints: Sternotomy. Vasculature: Vascular stent graft in the left upper extremity. Upper abdomen: Cholecystectomy clip. IMPRESSION: Confluent opacities in the left lower hemithorax that may be from pleural and parenchymal disease.
[2019-01-08] MEDS ORDERED: REGLAN5 MG ORAL (18:15)
[2019-01-08] MEDS ORDERED: SYMLIN600 MCG/1 SUBQ (18:15)
[2019-01-08] MEDS ORDERED: LANTUS SOL100 UNIT/1 SUBQ (18:15)
[2019-01-08] MEDS ORDERED: PROMETHAZINE-C118 M1 ORAL (18:15)
[2019-01-08] MEDS ORDERED: ZOFRAN4 M3 ORAL (18:15)
[2019-01-08] MEDS ORDERED: ASPIRIN EC81 MG ORAL (18:18)
[2019-01-08] MEDS ORDERED: ROXICODONE30 M1 ORAL (18:18)
[2019-01-08] MEDS ORDERED: METOPROLOL TART25 MG ORAL (18:20)
[2019-01-08 18:21] LABS: ALANINE AMINOTRANSFERASE 28 U/L (12-78); ALBUMIN 3.2 G/DL (3.4-5.0); ALBUMIN/GLOBULIN RATIO 0.8 (1.0-2.7); ALKALINE PHOSPHATASE 216 U/L (46-116); ASPARTATE AMINO TRANSFERASE 15 U/L (15-37); BILIRUBIN,TOTAL 0.5 MG/DL (0.2-1.0); CKMB 2.5 NG/ML (0.0-3.6); CREATINE KINASE 53 U/L (26-308)
--- NOTE | 2019-01-08 18:25 | NUR ---
ED Nurse Note: pt in bed resting, pt states chest pain is there but okay at this time, will cont monitor. NSR on cardiac rehabilitation specialist, VSS.
--- NOTE | 2019-01-08 19:13 | NUR ---
ED Nurse Note: report given to SHADIA Mckenzie at the bedside and endorsed care, pt vss, resp even and unlabored on RA, NSR on warehouse consultant, all belongings sent w/ pt.
--- NOTE | 2019-01-08 19:14 | NUR ---
NURSE NOTES: Received report from Corinna RENO from ED. Pt came with the ER kayleyralba and transferred to the bed. Placed on monitoring specialist. Shows NSR. Belongings verified with the nurse and cosigned. family members are at bedside.
--- NOTE | 2019-01-08 19:45 | NUR ---
NURSE NOTES: Called and left a msg for MD Vick about the new orders. Will continue to monitor the pt and wait for new orders.
[2019-01-08 20:00] VITALS: BP 135/85
--- NOTE | 2019-01-08 20:08 | History & Physical ---
History and Physical History & Physicial CP SOB Patient History Past Medical History: DM, HTN, CAD, asthma, renal disease, dialysis Past Surgical History: other - Cardiac surgery right LE BKA- Left LE Transmet amputation Past Medical History: No History, Except For Hx Cardiac Problems: Yes Hx Hypertension: Yes Hx Asthma: Yes Hx Diabetes: Yes - since first . On Insulin Hx Gastrointestinal Problems: Yes Hx Dialysis: Yes - TUES, TH, [facility]IALYSIS . LEFT UPPER ARM AV SHUNT Hx Concentration Difficulty: Yes Hx Vertigo: Yes Hx Dizziness: Yes Hx Numbness: Yes Hx Weakness: Yes Hx Fatigue: Yes HD GERD Treatment Monitor Troponin Thiago Galan MD Jan 08, 2019 20:08
[2019-01-08] MEDS ORDERED: Promethazine/Codeine 5ml UD ORAL PRN (20:15)
--- NOTE | 2019-01-08 20:30 | NUR ---
NURSE NOTES: New Orders noted. Will follow the new orders.
[2019-01-08] MEDS: Metoprolol 25mg tab ORAL SCH (21:43)
[2019-01-08] MEDS: NovoLOG Insulin Flexpen SUBQ SCH (22:50)
--- NOTE | 2019-01-08 23:00 | NUR ---
NURSE NOTES: Notified from Pharmacy that the 15 ml Phenergan order is not correct. Pharmacy cancelled the med. Returned the 3x5ml Phenergan. Pharmacy notified about the returning bin malfunction. Tech fixed the problem and meds returned to returning bin.
[2019-01-08] MEDS: Promethazine/Codeine 5ml UD ORAL PRN (23:20)
[2019-01-09] VITALS: BP 119/73
[2019-01-09 04:00] VITALS: BP 138/79
[2019-01-09] MEDS: Hydromorphone 0.5mg/0.5ml inj IVP PRN ×2 (06:01→21:13)
[2019-01-09] MEDS: NovoLOG Insulin Flexpen SUBQ SCH ×4 (06:44→21:15)
[2019-01-09 07:07] LABS: BASOPHILS % (AUTO) 0.8 % (0.0-2.0); EOSINOPHILS % (AUTO) 3.6 % (0.0-3.0); HEMATOCRIT 36.6 % (37.0-47.0); HEMOGLOBIN 11.5 G/DL (12.0-16.0); LYMPHOCYTES % (AUTO) 18.9 % (20.0-45.0); MEAN CORPUSCULAR VOLUME 90 FL (80-99); MONOCYTES % (AUTO) 8.2 % (1.0-10.0); NEUTROPHILS % (AUTO) 68.4 % (45.0-75.0); PLATELET COUNT 110 K/UL (150-450); RED BLOOD COUNT 4.07 M/UL (4.20-5.40); RED CELL DISTRIBUTION WIDTH 17.9 % (11.6-14.8)
--- NOTE | 2019-01-09 07:20 | NUR ---
NURSE NOTES: received patient report from rina azul. patient is on bed awake.comfortably eating breakfast.not in acute distress. no arrythmias reported during the night. on RA. supposedly schedule for dialysis today. night clerk auditor nurse rina left a message to dr krishnan this am to follow up. will follow plan of care.
--- NOTE | 2019-01-09 07:25 | NUR ---
NURSE NOTES: Sarah Galan that the patient is getting HD on T TH [facility]. Endorsed to the AM shift nurse.
--- NOTE | 2019-01-09 07:35 | NUR ---
HAND-OFF: Report given to Rebeca RENO
[2019-01-09 07:44] LABS: INR 1.4 (0.9-1.1)
[2019-01-09 08:00] VITALS: BP 126/76
[2019-01-09 08:31] LABS: % IRON SATURATION 58 % (15-50); IRON 43 ug/dL (50-175); TOTAL IRON BINDING CAPACITY 74 ug/dL (250-450)
[2019-01-09 08:54] LABS: BLOOD UREA NITROGEN 46 mg/dL (7-18); CALCIUM 8.6 MG/DL (8.5-10.1); CARBON DIOXIDE 24 MMOL/L (21-32); CHLORIDE 101 MMOL/L (98-107); CREATININE 8.9 MG/DL (0.55-1.30); SODIUM 138 MMOL/L (136-145)
[2019-01-09 08:55] LABS: ALANINE AMINOTRANSFERASE 28 U/L (12-78); ALBUMIN/GLOBULIN RATIO 0.8 (1.0-2.7); ASPARTATE AMINO TRANSFERASE 22 U/L (15-37); BILIRUBIN,TOTAL 0.4 MG/DL (0.2-1.0); FERRITIN 269 NG/ML (8-388); PHOSPHORUS 6.5 MG/DL (2.5-4.9); TRIGLYCERIDES 97 MG/DL (30-150)
[2019-01-09 08:56] LABS: ALKALINE PHOSPHATASE 3 U/L (46-116); CHOLESTEROL 142 MG/DL (< 200); HDL CHOLESTEROL 40 MG/DL (40-60)
[2019-01-09] MEDS: Heparin 5000 units/ml inj SUBQ SCH ×2 (09:00→21:15)
[2019-01-09] MEDS: Docusate 100mg cap ORAL SCH ×3 (09:00→17:26)
[2019-01-09] MEDS: Metoprolol 25mg tab ORAL SCH (09:00)
[2019-01-09] MEDS: Aspirin EC 81mg tab ORAL SCH (09:01)
[2019-01-09] MEDS: Promethazine/Codeine 5ml UD ORAL PRN (09:10)
--- NOTE | 2019-01-09 11:40 | NUR ---
NURSE NOTES: left a message to dr krishnan regarding patients schedule for dialysis. awaits callback and new order.
[2019-01-09 12:00] VITALS: BP 133/72
--- NOTE | 2019-01-09 15:35 | General Progress Note ---
Assessment/Plan Problem List: (1) Respiratory distress ICD Codes: R06.03 - Acute respiratory distress SNOMED: 309966992 (2) ESRD (end stage renal disease) on dialysis ICD Codes: N18.6 - End stage renal failure on dialysis; Z99.2 - Dependence on renal dialysis SNOMED: 073270734 (3) Pleural effusion ICD Codes: J90 - Pleural effusion, not elsewhere classified SNOMED: 42192342 (4) DM (diabetes mellitus) ICD Codes: E11.9 - DM (diabetes mellitus) SNOMED: 57745455 (5) Gastroparesis ICD Codes: K31.84 - Gastroparesis SNOMED: 533961455 (6) HTN (hypertension) ICD Codes: I10 - Essential (primary) hypertension SNOMED: 06719430 (7) Cardiomyopathy ICD Codes: I42.9 - Cardiomyopathy, unspecified SNOMED: 37037761 Status: unchanged Assessment/Plan HD and UF in am- 2D echo LOW EjFx start Digoxin and Hydralazine- down on Lopressor dose Anti GERD Meds HHN Rx Pulm and Cardio advise BS control Repeat CXR post HD in am Subjective ROS Limited/Unobtainable: No Constitutional: Reports: malaise Respiratory: Reports: cough, shortness of breath, SOB with excertion Allergies: Coded Allergies: No Known Allergies (Unverified , 12/16/17) Objective Last 24 Hour Vital Signs Date Time Temp Pulse Resp B/P (MAP) Pulse Ox O2 Delivery O2 Flow Rate FiO2 01/09/19 12:00 78 01/09/19 12:00 98.5 78 20 133/72 (92) 99 01/09/19 09:00 81 126/76 01/09/19 09:00 Room Air 01/09/19 08:00 98.4 81 20 126/76 (93) 99 01/09/19 08:00 80 01/09/19 04:00 76 01/09/19 04:00 98.4 78 19 138/79 (98) 99 01/09/19 00:00 98.3 80 18 119/73 (88) 99 01/09/19 00:00 81 01/08/19 22:05 Room Air 01/08/19 21:43 85 135/85 01/08/19 20:00 84 01/08/19 20:00 99.1 85 18 135/85 (102) 100 01/08/19 19:12 98.7 86 16 120/75 99 Room Air 01/08/19 16:46 97.3 86 18 133/73 98 Room Air 01/08/19 16:46 88 18 Room Air 01/08/19 16:20 98.1 92 21 132/73 100 Room Air Intake and Output 01/08/19 01/09/19 19:00 07:00 Intake Total 20 ml Balance 20 ml Intake Oral 20 ml Laboratory Tests 01/08/19 17:18: White Blood Count 9.0, Red Blood Count 4.02L, Hemoglobin 11.1L, Hematocrit 37.0 , Mean Corpuscular Volume 92, Mean Corpuscular Hemoglobin 27.5, Mean Corpuscular Hemoglobin Concent 29.9L, Red Cell Distribution Width 18.1H, Platelet Count 96L, Mean Platelet Volume 9.8, Neutrophils (%) (Auto) , Lymphocytes (%) (Auto) , Monocytes (%) (Auto) , Eosinophils (%) (Auto) , Basophils (%) (Auto) , Differential Total Cells Counted 100, Neutrophils % ( Manual) 69, Lymphocytes % (Manual) 21, Monocytes % (Manual) 7, Eosinophils % ( Manual) 3, Basophils % (Manual) 0, Band Neutrophils 0, Platelet Estimate DecreasedL, Platelet Morphology Normal, Polychromasia 1+, Hypochromasia 1+, Anisocytosis 1+, Spherocytes Occasional, Target Cells 1+, Sodium Level 138, Potassium Level 4.0, Chloride Level 101, Carbon Dioxide Level 27, Anion Gap 10, Blood Urea Nitrogen 43H, Creatinine 8.3H, Estimat Glomerular Filtration Rate 6.4 , Glucose Level 305H, Calcium Level 9.3, Total Bilirubin 0.5, Aspartate Amino Transf (AST/SGOT) 15, Alanine Aminotransferase (ALT/SGPT) 28, Alkaline Phosphatase 216H, Total Creatine Kinase 53, Creatine Kinase MB 2.5, Creatine Kinase MB Relative Index 4.7, Troponin I 0.048, C-Reactive Protein, Quantitative 1.4H, Total Protein 7.0, Albumin 3.2L, Globulin 3.8, Albumin/ Globulin Ratio 0.8L 01/09/19 04:45: White Blood Count 8.0, Red Blood Count 4.07L, Hemoglobin 11.5L, Hematocrit 36.6L , Mean Corpuscular Volume 90, Mean Corpuscular Hemoglobin 28.2, Mean Corpuscular Hemoglobin Concent 31.4L, Red Cell Distribution Width 17.9H, Platelet Count 110L, Mean Platelet Volume 10.0, Neutrophils (%) (Auto) 68.4, Lymphocytes (%) (Auto) 18.9L, Monocytes (%) (Auto) 8.2, Eosinophils (%) (Auto) 3.6H, Basophils (%) (Auto) 0.8, Sodium Level 138, Potassium Level 4.0, Chloride Level 101, Carbon Dioxide Level 24, Blood Urea Nitrogen 46H, Creatinine 8.9H, Estimat Glomerular Filtration Rate 5.8, Glucose Level 131#H, Calcium Level 8.6, Total Bilirubin 0.4, Aspartate Amino Transf (AST/SGOT) 22, Alanine Aminotransferase (ALT/SGPT) 28, Alkaline Phosphatase 3L, Troponin I 0.060H, Total Protein 6.7, Albumin 3.0L, Globulin 3.7, Albumin/Globulin Ratio 0.8L, Prothrombin Time 14.8H, Prothromb Time International Ratio 1.4H, Hemoglobin A1c 7.2H, Uric Acid 5.9, Phosphorus Level 6.5H, Magnesium Level 2.1, Iron Level 43L , Total Iron Binding Capacity 74L, Percent Iron Saturation 58H, Unsaturated Iron Binding 31L, Ferritin 269, Pro-B-Type Natriuretic Peptide > 14928A, Triglycerides Level 97, Cholesterol Level 142, LDL Cholesterol 85, HDL Cholesterol 40, Cholesterol/HDL Ratio 3.6, Lipase 100, Vitamin B12 Level > 2000H , Folate 4.5L, Thyroid Stimulating Hormone (TSH) 2.700 Height (Feet): 5 Height (Inches): 4.00 Weight (Pounds): 170 General Appearance: no apparent distress, other - comfy at rest Cardiovascular: normal rate, other - midchest scar CABGS Respiratory/Chest: decreased breath sounds Abdomen: soft Extremities: other - left trans metatarsal- Right Thiago Bowen MD Jan 09, 2019 15:35
[2019-01-09 16:00] VITALS: BP 137/85
--- NOTE | 2019-01-09 16:46 | Cardiology Progress Note ---
Subjective Subjective left a message for Dr Galan, regarding urgency of dyalysis Objective Last 24 Hour Vital Signs Date Time Temp Pulse Resp B/P (MAP) Pulse Ox O2 Delivery O2 Flow Rate FiO2 01/09/19 16:00 98.3 80 20 137/85 (102) 98 01/09/19 12:00 78 01/09/19 12:00 98.5 78 20 133/72 (92) 99 01/09/19 09:00 81 126/76 01/09/19 09:00 Room Air 01/09/19 08:00 98.4 81 20 126/76 (93) 99 01/09/19 08:00 80 01/09/19 04:00 76 01/09/19 04:00 98.4 78 19 138/79 (98) 99 01/09/19 00:00 98.3 80 18 119/73 (88) 99 01/09/19 00:00 81 01/08/19 22:05 Room Air 01/08/19 21:43 85 135/85 01/08/19 20:00 84 01/08/19 20:00 99.1 85 18 135/85 (102) 100 01/08/19 19:12 98.7 86 16 120/75 99 Room Air 01/08/19 16:46 97.3 86 18 133/73 98 Room Air 01/08/19 16:46 88 18 Room Air Intake and Output 01/08/19 01/09/19 19:00 07:00 Intake Total 20 ml Balance 20 ml Intake Oral 20 ml Laboratory Tests Test 01/08/19 17:18 01/09/19 04:45 White Blood Count 9.0 K/UL (4.8-10.8) 8.0 K/UL (4.8-10.8) Red Blood Count 4.02 M/UL (4.20-5.40) L 4.07 M/UL (4.20-5.40) L Hemoglobin 11.1 G/DL (12.0-16.0) L 11.5 G/DL (12.0-16.0) L Hematocrit 37.0 % (37.0-47.0) 36.6 % (37.0-47.0) L Mean Corpuscular Volume 92 FL (80-99) 90 FL (80-99) Mean Corpuscular Hemoglobin 27.5 PG (27.0-31.0) 28.2 PG (27.0-31.0) Mean Corpuscular Hemoglobin Concent 29.9 G/DL (32.0-36.0) L 31.4 G/DL (32.0-36.0) L Red Cell Distribution Width 18.1 % (11.6-14.8) H 17.9 % (11.6-14.8) H Platelet Count 96 K/UL (150-450) L 110 K/UL (150-450) L Mean Platelet Volume 9.8 FL (6.5-10.1) 10.0 FL (6.5-10.1) Neutrophils (%) (Auto) % (45.0-75.0) 68.4 % (45.0-75.0) Lymphocytes (%) (Auto) % (20.0-45.0) 18.9 % (20.0-45.0) L Monocytes (%) (Auto) % (1.0-10.0) 8.2 % (1.0-10.0) Eosinophils (%) (Auto) % (0.0-3.0) 3.6 % (0.0-3.0) H Basophils (%) (Auto) % (0.0-2.0) 0.8 % (0.0-2.0) Differential Total Cells Counted 100 Neutrophils % (Manual) 69 % (45-75) Lymphocytes % (Manual) 21 % (20-45) Monocytes % (Manual) 7 % (1-10) Eosinophils % (Manual) 3 % (0-3) Basophils % (Manual) 0 % (0-2) Band Neutrophils 0 % (0-8) Platelet Estimate Decreased L Platelet Morphology Normal Polychromasia 1+ Hypochromasia 1+ Anisocytosis 1+ Spherocytes Occasional Target Cells 1+ Sodium Level 138 MMOL/L (136-145) 138 MMOL/L (136-145) Potassium Level 4.0 MMOL/L (3.5-5.1) 4.0 MMOL/L (3.5-5.1) Chloride Level 101 MMOL/L (98-107) 101 MMOL/L (98-107) Carbon Dioxide Level 27 MMOL/L (21-32) 24 MMOL/L (21-32) Anion Gap 10 mmol/L (5-15) Blood Urea Nitrogen 43 mg/dL (7-18) H 46 mg/dL (7-18) H Creatinine 8.3 MG/DL (0.55-1.30) H 8.9 MG/DL (0.55-1.30) H Estimat Glomerular Filtration Rate 6.4 mL/min (>60) 5.8 mL/min (>60) Glucose Level 305 MG/DL (74-106) H 131 MG/DL (74-106) #H Calcium Level 9.3 MG/DL (8.5-10.1) 8.6 MG/DL (8.5-10.1) Total Bilirubin 0.5 MG/DL (0.2-1.0) 0.4 MG/DL (0.2-1.0) Aspartate Amino Transf (AST/SGOT) 15 U/L (15-37) 22 U/L (15-37) Alanine Aminotransferase (ALT/SGPT) 28 U/L (12-78) 28 U/L (12-78) Alkaline Phosphatase 216 U/L (46-116) H 3 U/L (46-116) L Total Creatine Kinase 53 U/L (26-308) Creatine Kinase MB 2.5 NG/ML (0.0-3.6) Creatine Kinase MB Relative Index 4.7 Troponin I 0.048 ng/mL (0.000-0.056) 0.060 ng/mL (0.000-0.056) C-Reactive Protein, Quantitative 1.4 mg/dL (0.00-0.90) H Total Protein 7.0 G/DL (6.4-8.2) 6.7 G/DL (6.4-8.2) Albumin 3.2 G/DL (3.4-5.0) L 3.0 G/DL (3.4-5.0) L Globulin 3.8 g/dL 3.7 g/dL Albumin/Globulin Ratio 0.8 (1.0-2.7) L 0.8 (1.0-2.7) L Prothrombin Time 14.8 SEC (9.30-11.50) H Prothromb Time International Ratio 1.4 (0.9-1.1) H Hemoglobin A1c 7.2 % (4.3-6.0) H Uric Acid 5.9 MG/DL (2.6-7.2) Phosphorus Level 6.5 MG/DL (2.5-4.9) H Magnesium Level 2.1 MG/DL (1.5-2.4) Iron Level 43 ug/dL (50-175) L Total Iron Binding Capacity 74 ug/dL (250-450) L Percent Iron Saturation 58 % (15-50) H Unsaturated Iron Binding 31 ug/dL (112-346) L Ferritin 269 NG/ML (8-388) Pro-B-Type Natriuretic Peptide > 14779 pg/mL (0-125) H Triglycerides Level 97 MG/DL (30-150) Cholesterol Level 142 MG/DL (< 200) LDL Cholesterol 85 mg/dL (<100) HDL Cholesterol 40 MG/DL (40-60) Cholesterol/HDL Ratio 3.6 (3.3-4.4) Lipase 100 U/L (73-393) Vitamin B12 Level > 2000 PG/ML (193-986) H Folate 4.5 NG/ML (8.6-58.9) L Thyroid Stimulating Hormone (TSH) 2.700 uiU/mL (0.358-3.740) Microbiology Date/Time Source Procedure Growth Status 01/08/19 18:50 Rectum Received Renee Flores MD Jan 09, 2019 16:45
--- NOTE | 2019-01-09 17:38 | NUR ---
NURSE NOTES: per dr krishnan, change HD date for today.will take note and carry out.
--- NOTE | 2019-01-09 18:33 | NUR ---
NURSE NOTES: left a message to dr krishnan regarding patients request for benadryl. awaits callback and new order.
--- NOTE | 2019-01-09 19:25 | NUR ---
HAND-OFF: Report given to anusha azul.
--- NOTE | 2019-01-09 19:36 | NUR ---
NURSE NOTES: Received report from SHADIA Jose. Patient is awake receiving dialysis from left upper arm AV shunt dialysis access; resting comfortably. No signs of acute distress noted; complains of pain. Boyfriend at bedside. AOx4; able to make needs known. Checked IV site; patent and flushed. No erythema, bleeding, or infiltration. Bed at lowest position, brakes on, siderails up x3. Call light within reach. Will continue to monitor.
[2019-01-09 20:00] VITALS: BP 127/87
[2019-01-09] MEDS: Albuterol ud Inhalation HHN SCH (20:14)
[2019-01-09] MEDS: Metoprolol Tartrate 12.5mg TAB ORAL SCH (21:05)
[2019-01-10] VITALS: BP 124/74
[2019-01-10] MEDS: HydrALAZINE 10mg Tab ORAL SCH ×3 (00:04→13:42)
[2019-01-10] MEDS: Promethazine/Codeine 5ml UD ORAL PRN (02:51)
--- NOTE | 2019-01-10 03:34 | NUR ---
NURSE NOTES: Patient is asleep lying semi-christy's; resting comfortably. No signs of acute distress or pain noted at this time. Boyfriend at bedside.
[2019-01-10 04:00] VITALS: BP 124/78
[2019-01-10] MEDS: NovoLOG Insulin Flexpen SUBQ SCH ×4 (06:10→21:53)
--- NOTE | 2019-01-10 07:07 | NUR ---
HAND-OFF: Report given to SAHDIA Jose. Patient is awake lying semi-christy's; resting comfortably. Boyfriend at bedside. In stable condition.
--- NOTE | 2019-01-10 07:13 | NUR ---
NURSE NOTES: received patient report and update from anusha azul. patient is on bed awake with family member. not in acute distress.sr on the monitor. had dialysis last night, 3 li out. bed is low and locked. will follow plan of care.
[2019-01-10] MEDS: Albuterol ud Inhalation HHN SCH ×3 (07:40→19:43)
[2019-01-10 08:00] VITALS: BP 128/74
[2019-01-10] MEDS: Aspirin EC 81mg tab ORAL SCH (08:47)
[2019-01-10] MEDS: Docusate 100mg cap ORAL SCH ×3 (08:49→17:38)
[2019-01-10] MEDS: Metoprolol Tartrate 12.5mg TAB ORAL SCH ×2 (08:49→21:50)
[2019-01-10] MEDS: Heparin 5000 units/ml inj SUBQ SCH ×2 (08:50→21:54)
[2019-01-10] MEDS: Hydromorphone 0.5mg/0.5ml inj IVP PRN (11:12)
[2019-01-10 12:00] VITALS: BP 136/85
--- NOTE | 2019-01-10 13:41 | General Progress Note ---
Assessment/Plan Problem List: (1) Respiratory distress ICD Codes: R06.03 - Acute respiratory distress SNOMED: 287722808 (2) ESRD (end stage renal disease) on dialysis ICD Codes: N18.6 - End stage renal failure on dialysis; Z99.2 - Dependence on renal dialysis SNOMED: 162983423 (3) Pleural effusion ICD Codes: J90 - Pleural effusion, not elsewhere classified SNOMED: 09565474 (4) DM (diabetes mellitus) ICD Codes: E11.9 - DM (diabetes mellitus) SNOMED: 40627471 (5) Gastroparesis ICD Codes: K31.84 - Gastroparesis SNOMED: 700374789 (6) HTN (hypertension) ICD Codes: I10 - Essential (primary) hypertension SNOMED: 78233819 (7) Cardiomyopathy ICD Codes: I42.9 - Cardiomyopathy, unspecified SNOMED: 45918624 Status: stable Assessment/Plan HD and UF done 01/09 per cardio rec. nwxt 01/11 2D echo LOW EjFx start Digoxin and Hydralazine- down on Lopressor dose Anti GERD Meds HHN Rx Pulm and Cardio advise BS control Repeat CXR post HD in am Subjective ROS Limited/Unobtainable: No Respiratory: Reports: other - less SOB Allergies: Coded Allergies: No Known Allergies (Unverified , 12/16/17) Objective Last 24 Hour Vital Signs Date Time Temp Pulse Resp B/P (MAP) Pulse Ox O2 Delivery O2 Flow Rate FiO2 01/10/19 12:53 92 18 99 Room Air 21 01/10/19 12:42 94 21 98 Room Air 21 01/10/19 12:00 98.8 92 20 136/85 (102) 99 01/10/19 09:00 Room Air 01/10/19 08:49 95 128/74 01/10/19 08:00 88 01/10/19 08:00 98.4 95 20 128/74 (92) 98 01/10/19 07:50 90 18 99 Room Air 21 01/10/19 07:40 91 17 99 Room Air 21 01/10/19 06:08 124/78 01/10/19 04:00 99.1 84 20 124/78 (93) 99 01/10/19 04:00 82 01/10/19 00:04 124/74 01/10/19 00:00 84 01/10/19 00:00 98.8 87 20 124/74 (91) 97 01/09/19 21:05 86 123/87 01/09/19 21:00 Room Air 01/09/19 20:24 88 18 99 Room Air 21 01/09/19 20:14 83 18 99 Room Air 21 01/09/19 20:13 83 18 Room Air 21 01/09/19 20:00 98.2 86 20 127/87 (100) 95 01/09/19 20:00 84 01/09/19 16:40 80 01/09/19 16:00 98.3 80 20 137/85 (102) 98 01/09/19 16:00 77 Intake and Output 01/09/19 01/10/19 19:00 07:00 Intake Total 480 ml 80 ml Balance 480 ml 80 ml Intake Oral 480 ml 80 ml # Bowel Movements 1 Height (Feet): 5 Height (Inches): 4.00 Weight (Pounds): 156 General Appearance: no apparent distress Cardiovascular: normal rate Respiratory/Chest: decreased breath sounds Abdomen: soft Thiago Galan MD Jan 10, 2019 13:41
[2019-01-10 16:00] VITALS: BP 131/78
--- NOTE | 2019-01-10 19:32 | NUR ---
HAND-OFF: Report given to anusha azul.
--- NOTE | 2019-01-10 19:41 | NUR ---
NURSE NOTES: Received report from SHADIA Jose. Patient is awake lying semi-christy's; resting comfortably. No signs of acute distress noted; denies pain at this time. AOx4; able to make needs known. Checked IV site; patent and flushed. No erythema, bleeding, or infiltration. Bed at lowest position, brakes on, siderails up x3. Call light within reach. Will continue to monitor.
[2019-01-10 21:00] VITALS: BP 133/80
--- NOTE | 2019-01-10 21:57 | Cardiology Progress Note ---
Assessment/Plan Assessment/Plan CHF, improved after dialysis will follow troponin Subjective Subjective [id number] The patient feels better today, she has no orthopnea and was able to sleep laying down Objective Last 24 Hour Vital Signs Date Time Temp Pulse Resp B/P (MAP) Pulse Ox O2 Delivery O2 Flow Rate FiO2 01/10/19 21:50 90 133/80 01/10/19 19:53 89 22 98 Room Air 21 01/10/19 19:43 86 21 98 Room Air 21 01/10/19 16:00 99.0 90 20 131/78 (95) 99 01/10/19 16:00 89 01/10/19 13:42 92 01/10/19 13:42 136/85 01/10/19 12:53 92 18 99 Room Air 21 01/10/19 12:42 94 21 98 Room Air 21 01/10/19 12:00 88 01/10/19 12:00 98.8 92 20 136/85 (102) 99 01/10/19 09:00 Room Air 01/10/19 08:49 95 128/74 01/10/19 08:00 88 01/10/19 08:00 98.4 95 20 128/74 (92) 98 01/10/19 07:50 90 18 99 Room Air 21 01/10/19 07:40 91 17 99 Room Air 21 01/10/19 06:08 124/78 01/10/19 04:00 99.1 84 20 124/78 (93) 99 01/10/19 04:00 82 01/10/19 00:04 124/74 01/10/19 00:00 84 01/10/19 00:00 98.8 87 20 124/74 (91) 97 General Appearance: other - ill appearinmg EENT: PERRL/EOMI Neck: JVD Rhythm: NSR Cardiovascular: normal rate, systolic murmur Respiratory/Chest: crackles/rales - on the left Abdomen: soft Extremities: other - right BKA, left foot ampu Intake and Output 01/09/19 01/10/19 19:00 07:00 Intake Total 480 ml 80 ml Balance 480 ml 80 ml Intake Oral 480 ml 80 ml # Bowel Movements 1 Laboratory Tests Test 01/10/19 17:40 C-Reactive Protein, Quantitative 1.2 mg/dL (0.00-0.90) H Microbiology Date/Time Source Procedure Growth Status 01/08/19 18:50 Rectum Received Renee Flores MD Jan 10, 2019 21:57
--- NOTE | 2019-01-10 23:00 | Consultation ---
DATE OF CONSULTATION: 01/09/2019 CARDIOLOGY CONSULTATION CONSULTING PHYSICIAN: Renee Flores M.D. IDENTIFYING DATA: This is a 43-year-old female. REASON FOR EVALUATION: Congestive heart failure. HISTORY OF PRESENT ILLNESS: Taken from the chart and discussion with the patient. The patient presented with shortness of breath and orthopnea and some chest discomfort. The patient is a very unfortunate 43-year-old female with diabetes and multiple complications. She has coronary artery disease and she underwent bypass surgery in 2016, and also she has peripheral vascular disease and bilateral leg amputation. The patient is on hemodialysis for end-stage renal disease, also due to diabetes. I reviewed her previous cardiac history and she had a recent stress nuclear scan in June 2018, which revealed ejection fraction of 42%, and she has had lateral reversible 10% defect. However, after that she underwent coronary angiography by Dr. Min and her coronary grafts were patent. The patient, as I mentioned, has end-stage renal disease. She is dialysis dependent. She has history of bypass surgery, bilateral leg surgeries, and history of myocardial infarction. HOME MEDICATIONS: Reviewed and reconciled. She is taking aspirin. She is taking insulin. She is taking metoprolol, oxycodone, simvastatin, and Coumadin. ALLERGIES: There is no reported allergies. HABITS: Remote history of smoking. She denies any illicit drug use or alcohol. REVIEW OF SYSTEMS: Remarkable for palpitations, which she has during dialysis and she has also back pain and lower extremity pain, especially when she walks. She is wearing prosthesis for ambulation after the surgery. PHYSICAL EXAMINATION: GENERAL: This is a pleasant female who looks chronically ill and older than stated age. VITAL SIGNS: Her blood pressure was 130/70, heart rate 90, and oxygen saturation is on room air 98%. Temperature is normal. HEENT: PERRLA. EOMI. NECK: Neck veins are distended. Her carotid upstroke is brisk with bilateral bruit. LUNGS: She has crackles bilaterally. HEART: Regular with distant S1. ABDOMEN: Soft. EXTREMITIES: Lower extremities, she has BK amputation on the right and she has transmetatarsal amputation on the left. NEUROLOGICAL: She is intact. DIAGNOSTIC AND LABORATORY DATA: Her EKG shows sinus rhythm with intraventricular conduction delay without acute ST or T changes. Her chest x-ray showed left lower lobe infiltrate. Labs significant for hemoglobin 11.1, WBC 9, and platelets 96. Creatinine 8.9 and phosphorus 6.5. Troponin 0.06. ProBNP level was 35,000. IMPRESSION AND RECOMMENDATION: The patient by presentation has congestive heart failure. She said that her last dialysis on was not completed because she had palpitations, so they could not take more fluid out and she is supposed to have dialysis today on 09 of January. I am going to contact the software tools engineer to make sure that the patient has timely dialysis to avoid decompensation and fluid overload. It seems like she at present time feels orthopnea and that is significant. Thank you very much for your consultation. Renee Flores M.D. DR: SUKHI JOB#: [id number] CC:
[2019-01-11] VITALS: BP 149/88
[2019-01-11] MEDS: HydrALAZINE 10mg Tab ORAL SCH ×4 (00:36→22:00)
[2019-01-11] MEDS: Hydromorphone 0.5mg/0.5ml inj IVP PRN (00:42)
[2019-01-11] MEDS: Metoclopramide 10mg/2ml Inj IVP PRN (03:27)
--- NOTE | 2019-01-11 03:41 | NUR ---
NURSE NOTES: Patient is awake lying semi-christy's c/o nausea. Reglan 10 mg IV PRN medication administered as needed. No signs of acute distress noted; denies pain at this time otherwise.
[2019-01-11 04:00] VITALS: BP 156/97
[2019-01-11] MEDS: NovoLOG Insulin Flexpen SUBQ SCH ×4 (05:50→20:53)
[2019-01-11 06:32] LABS: BASOPHILS % (AUTO) 0.6 % (0.0-2.0); EOSINOPHILS % (AUTO) 2.1 % (0.0-3.0); HEMATOCRIT 36.2 % (37.0-47.0); HEMOGLOBIN 10.8 G/DL (12.0-16.0); LYMPHOCYTES % (AUTO) 18.4 % (20.0-45.0); MEAN CORPUSCULAR VOLUME 92 FL (80-99); MONOCYTES % (AUTO) 9.9 % (1.0-10.0); PLATELET COUNT 125 K/UL (150-450); RED BLOOD COUNT 3.94 M/UL (4.20-5.40); RED CELL DISTRIBUTION WIDTH 18.8 % (11.6-14.8); WHITE BLOOD COUNT 8.5 K/UL (4.8-10.8)
[2019-01-11 07:00] LABS: ALANINE AMINOTRANSFERASE 17 U/L (12-78); ALBUMIN/GLOBULIN RATIO 0.8 (1.0-2.7); ALKALINE PHOSPHATASE 183 U/L (46-116); ANION GAP 11 mmol/L (5-15); ASPARTATE AMINO TRANSFERASE 11 U/L (15-37); BILIRUBIN,TOTAL 0.7 MG/DL (0.2-1.0); BLOOD UREA NITROGEN 48 mg/dL (7-18); CALCIUM 9.2 MG/DL (8.5-10.1); CARBON DIOXIDE 30 MMOL/L (21-32); CHLORIDE 99 MMOL/L (98-107); CREATININE 10.2 MG/DL (0.55-1.30); PHOSPHORUS 6.9 MG/DL (2.5-4.9); POTASSIUM 4.6 MMOL/L (3.5-5.1); SODIUM 140 MMOL/L (136-145)
[2019-01-11] MEDS: Albuterol ud Inhalation HHN SCH ×3 (07:00→19:55)
--- NOTE | 2019-01-11 07:18 | NUR ---
HAND-OFF: Report given to SHADIA Campos. Patient is asleep lying semi-christy's; resting comfortably. In stable condition. Endorsed to oncoming RN regarding patient's hemodialysis procedure later today; verbalized understanding.
--- NOTE | 2019-01-11 07:22 | NUR ---
NURSE NOTES: Left message on voicemail of Dr. Renee Flores reporting Troponin=0.066. Will continue to monitor patient.
--- NOTE | 2019-01-11 07:45 | NUR ---
NURSE NOTES: Patient sitting up in bed, awake and alert, talking on telephone, cane at bedside, prosthesis at bedside, bed in lowest position, call light within reach, no SOB, in no apparent distress.
[2019-01-11 08:00] VITALS: BP 128/85
[2019-01-11] MEDS: Docusate 100mg cap ORAL SCH ×3 (09:00→17:47)
[2019-01-11] MEDS: Metoprolol Tartrate 12.5mg TAB ORAL SCH (09:00)
[2019-01-11] MEDS: Aspirin EC 81mg tab ORAL SCH (09:00)
[2019-01-11] MEDS: Heparin 5000 units/ml inj SUBQ SCH ×2 (09:00→20:54)
--- NOTE | 2019-01-11 10:23 | NUR ---
NURSE NOTES: Left message with Lorrie at Dr. Thiago Galan's office regarding patient request for 25 mg. Benadryl IVP.
[2019-01-11] MEDS ORDERED: DiphenhydrAMINE 50mg/ml Inj IVP PRN (10:30)
[2019-01-11] MEDS ORDERED: DiphenhydrAMINE 50mg/ml Inj IVP SCH (10:30)
[2019-01-11 12:00] VITALS: BP 137/84
--- NOTE | 2019-01-11 12:17 | Consultation ---
History of Present Illness General Date patient seen: Jan 11, 2019 Chief Complaint: Chest Pain Present Illness HPI 43 year old female with history of renal failure on dialysis, DM, cardiomegaly present ed to ER with CC of acute onset of chest discomfort. She has intermittent chest pains become worse on day of admission She complains of some shortness of breath associated with this as well. 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 Patient denies any other injuries. She has also episodes of cough with brownish sputum. Allergies: Coded Allergies: No Known Allergies (Unverified , 12/16/17) Medication History Scheduled Aspirin Ec* (Aspirin Ec*), 81 MG ORAL DAILY, (Reported) Docusate Sodium* (Colace*), 100 MG ORAL PRN, (Reported) Hum Insulin Nph/Reg Insulin Hm (Humulin 70-30 Vial), 11 UNITS SUBQ ACBREAKFAST, (Reported) Hum Insulin Nph/Reg Insulin Hm (Humulin 70-30 Vial), 6 SUBQ BEFORE DINNER, ( Reported) Insulin Glargine (Lantus), 0 SUBQ BEDTIME, (Reported) Metoprolol Tartrate* (Metoprolol Tartrate*), 25 MG ORAL EVERY 12 HOURS, ( Reported) Sevelamer Carbonate (Renvela), 800 MG ORAL THREE TIMES A DAY, (Reported) Sevelamer Carbonate* (Renvela*), 800 MG ORAL THREE TIMES A DAY, (Reported) Simvastatin (Zocor), 20 MG ORAL BEDTIME, (Reported) Warfarin Sod* (Warfarin Sod*), 10 MG ORAL DAILY, (Reported) Scheduled PRN Codeine/Promethazine Hcl* (Promethazine-Codeine Syrup*), 30 ML ORAL QPM PRN for For Cough, (Reported) Metoclopramide Hcl* (Reglan*), 5 MG ORAL EVERY MORNING PRN for Nausea & Vomiting , (Reported) Ondansetron* (Zofran*), 4 MG ORAL EVERY MORNING PRN for Nausea & Vomiting, ( Reported) Oxycodone Hcl* (Roxicodone*), 30 MG ORAL BID PRN for For Pain, (Reported) Miscellaneous Medications Insulin Regular, Human (Humulin R), 0 SUBQ, (Reported) Discontinued Medications Azithromycin* (Zithromax*), 250 MG ORAL DAILY Discontinued Reason: Therapy completed Omeprazole (Omeprazole), 20 MG ORAL DAILY, (Reported) Discontinued Reason: Pt stopped taking med Polyethylene Glycol* (Miralax*), 17 GM ORAL DAILY, (Reported) Discontinued Reason: Pt stopped taking med Warfarin Sod (Coumadin*), 7.5 MG ORAL DAILY, (Reported) Discontinued Reason: Prescription changed Patient History Healthcare decision maker Resuscitation status Full Code Advanced Directive on File Past Medical/Surgical History Past Medical/Surgical History: (1) Pelvic mass in female (2) Anemia (3) IDDM (insulin dependent diabetes mellitus) (4) HTN (hypertension) (5) ESRD (end stage renal disease) on dialysis (6) Diabetic gastroparesis (7) Cardiomyopathy Review of Systems Constitutional: Reports: no symptoms Eye: Reports: no symptoms ENT: Reports: no symptoms Respiratory: Reports: no symptoms Physical Exam General Appearance: WD/WN Lines, tubes and drains: peripheral HEENT: normocephalic, atraumatic Neck: non-tender, normal alignment Respiratory/Chest: chest wall non-tender, lungs clear Cardiovascular/Chest: normal peripheral pulses, normal rate Abdomen: normal bowel sounds, non tender Last 24 Hour Vital Signs Date Time Temp Pulse Resp B/P (MAP) Pulse Ox O2 Delivery O2 Flow Rate FiO2 01/11/19 09:00 89 128/85 01/11/19 08:00 98.7 89 18 128/85 (99) 97 01/11/19 07:14 Room Air 21 01/11/19 07:14 Room Air 21 01/11/19 05:49 156/97 01/11/19 04:00 97 01/11/19 04:00 98.1 98 18 156/97 (116) 94 01/11/19 00:36 149/88 01/11/19 00:00 99.1 93 18 149/88 (108) 99 01/11/19 00:00 91 01/10/19 21:50 90 133/80 01/10/19 21:00 Room Air 01/10/19 21:00 97.3 90 18 133/80 (97) 100 01/10/19 20:00 90 01/10/19 19:53 89 22 98 Room Air 21 01/10/19 19:43 86 21 98 Room Air 21 01/10/19 16:00 99.0 90 20 131/78 (95) 99 01/10/19 16:00 89 01/10/19 13:42 92 01/10/19 13:42 136/85 01/10/19 12:53 92 18 99 Room Air 21 01/10/19 12:42 94 21 98 Room Air 21 Intake and Output 01/10/19 01/11/19 19:00 07:00 Intake Total 480 ml 240 ml Balance 480 ml 240 ml Intake Oral 480 ml 240 ml # Voids 1 Laboratory Tests Test 01/10/19 17:40 01/11/19 04:50 C-Reactive Protein, Quantitative 1.2 mg/dL (0.00-0.90) H White Blood Count 8.5 K/UL (4.8-10.8) Red Blood Count 3.94 M/UL (4.20-5.40) L Hemoglobin 10.8 G/DL (12.0-16.0) L Hematocrit 36.2 % (37.0-47.0) L Mean Corpuscular Volume 92 FL (80-99) Mean Corpuscular Hemoglobin 27.5 PG (27.0-31.0) Mean Corpuscular Hemoglobin Concent 30.0 G/DL (32.0-36.0) L Red Cell Distribution Width 18.8 % (11.6-14.8) H Platelet Count 125 K/UL (150-450) L Mean Platelet Volume 9.8 FL (6.5-10.1) Neutrophils (%) (Auto) 69.0 % (45.0-75.0) Lymphocytes (%) (Auto) 18.4 % (20.0-45.0) L Monocytes (%) (Auto) 9.9 % (1.0-10.0) Eosinophils (%) (Auto) 2.1 % (0.0-3.0) Basophils (%) (Auto) 0.6 % (0.0-2.0) Sodium Level 140 MMOL/L (136-145) Potassium Level 4.6 MMOL/L (3.5-5.1) Chloride Level 99 MMOL/L (98-107) Carbon Dioxide Level 30 MMOL/L (21-32) Anion Gap 11 mmol/L (5-15) Blood Urea Nitrogen 48 mg/dL (7-18) H Creatinine 10.2 MG/DL (0.55-1.30) H Estimat Glomerular Filtration Rate 5.1 mL/min (>60) Glucose Level 189 MG/DL (74-106) H Calcium Level 9.2 MG/DL (8.5-10.1) Phosphorus Level 6.9 MG/DL (2.5-4.9) H Magnesium Level 2.1 MG/DL (1.8-2.4) Total Bilirubin 0.7 MG/DL (0.2-1.0) Aspartate Amino Transf (AST/SGOT) 11 U/L (15-37) L Alanine Aminotransferase (ALT/SGPT) 17 U/L (12-78) Alkaline Phosphatase 183 U/L (46-116) H Troponin I 0.066 ng/mL (0.000-0.056) Pro-B-Type Natriuretic Peptide > 46035 pg/mL (0-125) H Total Protein 6.8 G/DL (6.4-8.2) Albumin 3.0 G/DL (3.4-5.0) L Globulin 3.8 g/dL Albumin/Globulin Ratio 0.8 (1.0-2.7) L Digoxin Level 1.2 NG/ML (0.9-2.0) Height (Feet): 5 Height (Inches): 4.00 Weight (Pounds): 158 Medications Current Medications Medications (Trade) Dose Ordered Sig/Maci Route PRN Reason Start Time Stop Time Status Last Admin Dose Admin Albuterol Sulfate (Proventil) 2.5 mg TIDRT HHN 01/09/19 15:45 01/14/19 15:44 01/10/19 19:43 Aspirin (Ecotrin) 81 mg DAILY ORAL 01/09/19 09:00 02/08/19 08:59 01/10/19 08:47 Atorvastatin Calcium (Lipitor) 10 mg BEDTIME ORAL 01/08/19 21:00 02/07/19 20:59 01/09/19 21:06 Dextrose (Dextrose 50%) 25 ml Q30M PRN IV Hypoglycemia 01/08/19 21:45 02/07/19 21:44 Dextrose (Dextrose 50%) 50 ml Q30M PRN IV Hypoglycemia 01/08/19 21:45 02/07/19 21:44 Diphenhydramine HCl (Benadryl) 25 mg Q6H PRN IVP Itching and during HD 01/11/19 10:30 02/10/19 10:29 Docusate Sodium (Colace) 100 mg TID ORAL 01/09/19 09:00 02/08/19 08:59 Folic Acid (Folate) 3 mg DAILY ORAL 01/09/19 12:45 02/08/19 12:44 01/10/19 08:49 Heparin Sodium (Porcine) (Heparin 5000 units/ml) 5,000 units EVERY 12 HOURS SUBQ 01/09/19 09:00 02/08/19 08:59 01/10/19 21:54 Hydralazine HCl (Apresoline) 10 mg Q8HR ORAL 01/09/19 22:00 02/08/19 21:59 01/11/19 00:36 Hydromorphone HCl (Dilaudid) 0.5 mg Q4H PRN IVP For Pain 01/08/19 20:15 01/15/19 20:14 01/11/19 00:42 Insulin Aspart (NovoLOG) BEFORE MEALS AND HS SUBQ 01/08/19 22:00 02/07/19 21:59 01/11/19 05:50 Metoclopramide HCl (Reglan) 5 mg TIAC ORAL 01/09/19 06:30 02/08/19 08:59 01/11/19 11:24 Metoclopramide HCl (Reglan) 10 mg Q6H PRN IVP Nausea & Vomiting 01/08/19 20:30 02/07/19 20:29 01/11/19 03:27 Metoprolol Tartrate (Lopressor) 12.5 mg EVERY 12 HOURS ORAL 01/09/19 21:00 02/07/19 20:59 01/10/19 21:50 Nateglinide (Starlix) 120 mg TIAC ORAL 01/09/19 06:30 02/08/19 06:29 01/11/19 11:24 Pantoprazole (Protonix) 40 mg EVERY 12 HOURS ORAL 01/08/19 21:00 02/07/19 20:59 01/10/19 08:47 Promethazine HCl/ Codeine (Phenergan with Codeine) 5 ml QIDPRN PRN ORAL For Cough 01/08/19 23:15 02/07/19 20:14 01/10/19 02:51 Sevelamer Carbonate (Renvela) 2,400 mg THREE TIMES A DAY ORAL 01/09/19 18:00 02/08/19 08:59 01/10/19 17:38 Assessment/Plan Problem List: (1) Purulent bronchitis ICD Codes: J41.1 - Mucopurulent chronic bronchitis SNOMED: 39238979 (2) ACS (acute coronary syndrome) ICD Codes: I24.9 - Acute ischemic heart disease, unspecified SNOMED: 821451457 (3) ESRD (end stage renal disease) on dialysis ICD Codes: N18.6 - End stage renal disease; Z99.2 - Dependence on renal dialysis SNOMED: 929886624 (4) HTN (hypertension) ICD Codes: I10 - HTN (hypertension) SNOMED: 00921387 (5) IDDM (insulin dependent diabetes mellitus) ICD Codes: E11.9 - IDDM (insulin dependent diabetes mellitus) SNOMED: 97193028 (6) Anemia ICD Codes: D64.9 - Anemia SNOMED: 429297350 (7) Cardiomyopathy ICD Codes: I42.9 - Cardiomyopathy, unspecified SNOMED: 95149606 Assessment/Plan check sputum iv abx respiratory treatment symptomatic treatment antitussives HD by nephrology CXR from a few days ago showed only cardiomegaly. without apparent pulmonary edema or infiltrate. dvt prophylaxis. Isabelle Mitchell MD Jan 11, 2019 12:17
--- NOTE | 2019-01-11 12:22 | NUR ---
CASE MANAGEMENT:REVIEW 43 YR OLD FEMALE FROM HOME TO ER CC: CHEST PAIN PMH: ESRD ON HD T--SAT SI: ACS 98.1 92 21 132/73 100% ON RA BUN+43 CR+8.3 TROPONIN(+)0.060 IS: ASA PO DIGOXIN PO X1 LOPRESSOR CXR : TO TELEMETRY : INTERQUAL CRITERIA MET
--- NOTE | 2019-01-11 13:39 | General Progress Note ---
Assessment/Plan Problem List: (1) Pleural effusion ICD Codes: J90 - Pleural effusion, not elsewhere classified SNOMED: 19688390 (2) Cardiomyopathy ICD Codes: I42.9 - Cardiomyopathy, unspecified SNOMED: 98259883 (3) ESRD (end stage renal disease) on dialysis ICD Codes: N18.6 - End stage renal disease; Z99.2 - Dependence on renal dialysis SNOMED: 788603464 (4) Diabetic gastroparesis ICD Codes: E11.43 - Type 2 diabetes mellitus with diabetic autonomic (poly) neuropathy; K31.84 - Gastroparesis SNOMED: 273982703 (5) Anemia ICD Codes: D64.9 - Anemia SNOMED: 862981400 Status: stable Status Narrative just finished HD Assessment/Plan HD and UF done 01/11 add nitro dig coreg 2D echo LOW EjFx Anti GERD Meds HHN Rx Pulm and Cardio advise BS control Repeat CXR post HD Subjective ROS Limited/Unobtainable: No Constitutional: Reports: malaise Respiratory: Reports: cough Allergies: Coded Allergies: No Known Allergies (Unverified , 12/16/17) Objective Last 24 Hour Vital Signs Date Time Temp Pulse Resp B/P (MAP) Pulse Ox O2 Delivery O2 Flow Rate FiO2 01/11/19 13:31 90 20 99 Room Air 21 01/11/19 13:22 80 16 97 Room Air 21 01/11/19 12:00 91 01/11/19 12:00 98.6 93 18 137/84 (101) 99 01/11/19 09:00 89 128/85 01/11/19 08:00 89 01/11/19 08:00 98.7 89 18 128/85 (99) 97 01/11/19 07:14 Room Air 21 01/11/19 07:14 Room Air 21 01/11/19 05:49 156/97 01/11/19 04:00 97 01/11/19 04:00 98.1 98 18 156/97 (116) 94 01/11/19 00:36 149/88 01/11/19 00:00 99.1 93 18 149/88 (108) 99 01/11/19 00:00 91 01/10/19 21:50 90 133/80 01/10/19 21:00 Room Air 01/10/19 21:00 97.3 90 18 133/80 (97) 100 01/10/19 20:00 90 01/10/19 19:53 89 22 98 Room Air 21 01/10/19 19:43 86 21 98 Room Air 21 01/10/19 16:00 99.0 90 20 131/78 (95) 99 01/10/19 16:00 89 01/10/19 13:42 92 01/10/19 13:42 136/85 Intake and Output 01/10/19 01/11/19 19:00 07:00 Intake Total 480 ml 240 ml Balance 480 ml 240 ml Intake Oral 480 ml 240 ml # Voids 1 Laboratory Tests 01/10/19 17:40: C-Reactive Protein, Quantitative 1.2H 01/11/19 04:50: White Blood Count 8.5, Red Blood Count 3.94L, Hemoglobin 10.8L, Hematocrit 36.2L , Mean Corpuscular Volume 92, Mean Corpuscular Hemoglobin 27.5, Mean Corpuscular Hemoglobin Concent 30.0L, Red Cell Distribution Width 18.8H, Platelet Count 125L, Mean Platelet Volume 9.8, Neutrophils (%) (Auto) 69.0, Lymphocytes (%) (Auto) 18.4L, Monocytes (%) (Auto) 9.9, Eosinophils (%) (Auto) 2.1, Basophils (%) (Auto) 0.6, Sodium Level 140, Potassium Level 4.6, Chloride Level 99, Carbon Dioxide Level 30, Anion Gap 11, Blood Urea Nitrogen 48H, Creatinine 10.2H, Estimat Glomerular Filtration Rate 5.1, Glucose Level 189H, Calcium Level 9.2, Phosphorus Level 6.9H, Magnesium Level 2.1, Total Bilirubin 0.7, Aspartate Amino Transf (AST/SGOT) 11L, Alanine Aminotransferase (ALT/SGPT) 17, Alkaline Phosphatase 183H, Troponin I 0.066H, Pro-B-Type Natriuretic Peptide > 51325H, Total Protein 6.8, Albumin 3.0L, Globulin 3.8, Albumin/ Globulin Ratio 0.8L, Digoxin Level 1.2 Height (Feet): 5 Height (Inches): 4.00 Weight (Pounds): 158 General Appearance: no apparent distress Respiratory/Chest: decreased breath sounds Abdomen: soft Extremities: other - left trans met- right Thiago Bowen MD Jan 11, 2019 13:39
[2019-01-11] MEDS ORDERED: Digoxin 0.125mg tab ORAL SCH (13:45)
--- NOTE | 2019-01-11 13:57 | NUR ---
NURSE NOTES: Patient took only 10 mg. Hydralazine.
[2019-01-11] MEDS: Nitroglycerin Patch 0.4mg TDERMAL SCH (14:01)
[2019-01-11 16:00] VITALS: BP 118/77
--- NOTE | 2019-01-11 17:13 | Diagnostic Imaging Report ---
Indication: Abnormal renal function tests Technique: Grayscale and duplex images of the kidneys, retroperitoneum, and bladder were obtained. Comparison: 04/18 Findings: Right kidney measures 6.3 cm in length. Left kidney measures 6.5 cm in length. Both kidneys demonstrate increased echogenicity. No hydronephrosis. No focal abnormality. Normal inferior vena cava. Bladder is normal, contains a small amount of urine. Impression: Atrophic hyperechoic bilateral kidneys, consistent with chronic medical renal disease. Note that this is a new finding since previous exam of 2012.
--- NOTE | 2019-01-11 17:51 | NUR ---
NURSE NOTES: Insulin given in right upper arm, not left upper arm.
[2019-01-11 20:00] VITALS: BP 109/78
--- NOTE | 2019-01-11 20:34 | NUR ---
HAND-OFF: Report given to Milka Roman RN. Patient sitting up in bed, watching television, bed in lowet position, call ight within reach, prosthesis and cane at bedside, in no apparent distress.
--- NOTE | 2019-01-11 20:55 | NUR ---
NURSE NOTES: Patient resting in bed awake and alert x4, no s/s distress noted. Bed in lowest position for safety, safety precaution maintained. Call light within reach.
[2019-01-11] MEDS: Carvedilol 12.5mg tab ORAL SCH (21:00)
[2019-01-11] MEDS: Promethazine/Codeine 5ml UD ORAL PRN (22:35)
[2019-01-12] VITALS: BP 122/82
[2019-01-12 04:00] VITALS: BP 127/78
[2019-01-12] MEDS: Hydromorphone 0.5mg/0.5ml inj IVP PRN ×2 (05:26→21:41)
[2019-01-12] MEDS: Metoclopramide 10mg/2ml Inj IVP PRN (05:26)
[2019-01-12] MEDS: HydrALAZINE 10mg Tab ORAL SCH (05:35)
[2019-01-12] MEDS: NovoLOG Insulin Flexpen SUBQ SCH ×4 (06:26→21:50)
[2019-01-12 06:49] LABS: BASOPHILS % (AUTO) 0.7 % (0.0-2.0); EOSINOPHILS % (AUTO) 3.6 % (0.0-3.0); HEMATOCRIT 36.6 % (37.0-47.0); HEMOGLOBIN 11.1 G/DL (12.0-16.0); LYMPHOCYTES % (AUTO) 21.2 % (20.0-45.0); MEAN CORPUSCULAR VOLUME 92 FL (80-99); MONOCYTES % (AUTO) 10.5 % (1.0-10.0); NEUTROPHILS % (AUTO) 64.1 % (45.0-75.0); PLATELET COUNT 133 K/UL (150-450); RED BLOOD COUNT 3.96 M/UL (4.20-5.40); RED CELL DISTRIBUTION WIDTH 19.6 % (11.6-14.8)
[2019-01-12] MEDS: Albuterol ud Inhalation HHN SCH ×3 (07:00→19:42)
--- NOTE | 2019-01-12 07:11 | NUR ---
HAND-OFF: Report given to Andres RENO.
[2019-01-12 07:26] LABS: ALANINE AMINOTRANSFERASE 15 U/L (12-78); ALBUMIN/GLOBULIN RATIO 0.7 (1.0-2.7); ALKALINE PHOSPHATASE 174 U/L (46-116); ANION GAP 11 mmol/L (5-15); ASPARTATE AMINO TRANSFERASE 10 U/L (15-37); BILIRUBIN,TOTAL 0.9 MG/DL (0.2-1.0); BLOOD UREA NITROGEN 37 mg/dL (7-18); CALCIUM 9.4 MG/DL (8.5-10.1); CARBON DIOXIDE 29 MMOL/L (21-32); CHLORIDE 100 MMOL/L (98-107); CREATININE 8.7 MG/DL (0.55-1.30); PHOSPHORUS 5.6 MG/DL (2.5-4.9); SODIUM 140 MMOL/L (136-145)
--- NOTE | 2019-01-12 07:55 | NUR ---
NURSE NOTES: Patient sitting up in bed, awake and alert, talking on phone, bed in lowest position, call light within reach, no c/o pain, no SOB, cane and prosthesis at bedside.
[2019-01-12 08:00] VITALS: BP 119/74
[2019-01-12] MEDS: Heparin 5000 units/ml inj SUBQ SCH ×2 (09:00→21:00)
[2019-01-12] MEDS: Docusate 100mg cap ORAL SCH ×3 (09:00→17:40)
[2019-01-12] MEDS: Carvedilol 12.5mg tab ORAL SCH (09:00)
[2019-01-12] MEDS ORDERED: Imdur 30mg tab ORAL SCH (09:45)
[2019-01-12] MEDS: Aspirin EC 81mg tab ORAL SCH (10:25)
--- NOTE | 2019-01-12 10:25 | Pulmonology Progress Note ---
Assessment/Plan Problems: (1) Purulent bronchitis (2) ACS (acute coronary syndrome) (3) ESRD (end stage renal disease) on dialysis (4) HTN (hypertension) (5) IDDM (insulin dependent diabetes mellitus) (6) Anemia (7) Cardiomyopathy Assessment/Plan less cough check sputum, still pending iv abx respiratory treatment symptomatic treatment antitussives HD by nephrology CXR from a few days ago showed only cardiomegaly. without apparent pulmonary edema or infiltrate. dvt prophylaxis. f/u cardiology recommendations. Subjective ROS Limited/Unobtainable: No Constitutional: Reports: no symptoms HEENT: Repors: no symptoms Respiratory: Reports: no symptoms Cardiovascular: Reports: no symptoms Gastrointestinal/Abdominal: Reports: no symptoms Genitourinary: Reports: no symptoms Allergies: Coded Allergies: No Known Allergies (Unverified , 12/16/17) Objective Last 24 Hour Vital Signs Date Time Temp Pulse Resp B/P (MAP) Pulse Ox O2 Delivery O2 Flow Rate FiO2 01/12/19 08:00 98.8 92 18 119/74 (89) 97 01/12/19 07:28 Room Air 21 01/12/19 07:28 Room Air 21 01/12/19 05:35 127/78 01/12/19 04:00 93 01/12/19 04:00 98.6 93 20 127/78 (94) 98 01/12/19 00:00 90 01/12/19 00:00 98.4 90 17 122/82 (95) 97 01/11/19 22:00 128/78 01/11/19 21:00 96 109/78 01/11/19 21:00 Room Air 01/11/19 20:00 98.9 96 18 109/78 (88) 98 01/11/19 20:00 96 01/11/19 19:55 91 20 99 Room Air 21 01/11/19 19:44 90 20 99 Room Air 21 01/11/19 16:00 97 01/11/19 16:00 99.5 99 18 118/77 (91) 98 01/11/19 14:01 137/84 01/11/19 14:00 90 01/11/19 13:57 137/84 01/11/19 13:31 90 20 99 Room Air 21 01/11/19 13:22 80 16 97 Room Air 21 01/11/19 12:00 91 01/11/19 12:00 98.6 93 18 137/84 (101) 99 Intake and Output 01/11/19 01/12/19 18:59 06:59 Intake Total 360 ml 100 ml Output Total 3000 ml Balance -2640 ml 100 ml Intake Oral 360 ml 100 ml Output Hemodialysis UF 3000 ml General Appearance: WD/WN HEENT: normocephalic, atraumatic Respiratory/Chest: chest wall non-tender, lungs clear Breasts: no masses Cardiovascular: normal peripheral pulses Laboratory Tests 01/12/19 06:17: White Blood Count 9.0, Red Blood Count 3.96L, Hemoglobin 11.1L, Hematocrit 36.6L , Mean Corpuscular Volume 92, Mean Corpuscular Hemoglobin 28.1, Mean Corpuscular Hemoglobin Concent 30.5L, Red Cell Distribution Width 19.6H, Platelet Count 133L, Mean Platelet Volume 10.4H, Neutrophils (%) (Auto) 64.1, Lymphocytes (%) (Auto) 21.2, Monocytes (%) (Auto) 10.5H, Eosinophils (%) (Auto) 3.6H, Basophils (%) (Auto) 0.7, Sodium Level 140, Potassium Level 4.0, Chloride Level 100, Carbon Dioxide Level 29, Anion Gap 11, Blood Urea Nitrogen 37H, Creatinine 8.7H, Estimat Glomerular Filtration Rate 6.1, Glucose Level 77#, Calcium Level 9.4, Phosphorus Level 5.6H, Magnesium Level 2.1, Total Bilirubin 0.9, Aspartate Amino Transf (AST/SGOT) 10L, Alanine Aminotransferase (ALT/SGPT) 15, Alkaline Phosphatase 174H, Troponin I 0.100H, C-Reactive Protein, Quantitative 4.3H, Pro-B-Type Natriuretic Peptide > 61482Z, Total Protein 7.1, Albumin 3.0L, Globulin 4.1, Albumin/Globulin Ratio 0.7L Current Medications Medications (Trade) Dose Ordered Sig/Maci Route PRN Reason Start Time Stop Time Status Last Admin Dose Admin Albuterol Sulfate (Proventil) 2.5 mg TIDRT HHN 01/09/19 15:45 01/14/19 15:44 01/11/19 19:55 Aspirin (Ecotrin) 81 mg DAILY ORAL 01/09/19 09:00 02/08/19 08:59 01/10/19 08:47 Atorvastatin Calcium (Lipitor) 10 mg BEDTIME ORAL 01/08/19 21:00 02/07/19 20:59 01/11/19 20:50 Carvedilol (Coreg) 25 mg EVERY 12 HOURS ORAL 01/12/19 21:00 02/10/19 20:59 Dextrose (Dextrose 50%) 25 ml Q30M PRN IV Hypoglycemia 01/08/19 21:45 02/07/19 21:44 Dextrose (Dextrose 50%) 50 ml Q30M PRN IV Hypoglycemia 01/08/19 21:45 02/07/19 21:44 Digoxin (Lanoxin) 0.125 mg QOD ORAL 01/13/19 09:00 02/12/19 08:59 Diphenhydramine HCl (Benadryl) 25 mg Q6H PRN IVP Itching and during HD 01/11/19 10:30 02/10/19 10:29 Docusate Sodium (Colace) 100 mg TID ORAL 01/09/19 09:00 02/08/19 08:59 01/11/19 13:56 Folic Acid (Folate) 3 mg DAILY ORAL 01/09/19 12:45 02/08/19 12:44 01/10/19 08:49 Heparin Sodium (Porcine) (Heparin 5000 units/ml) 5,000 units EVERY 12 HOURS SUBQ 01/09/19 09:00 02/08/19 08:59 01/10/19 21:54 Hydralazine HCl (Apresoline) 25 mg Q8HR ORAL 01/12/19 14:00 02/08/19 21:59 Hydromorphone HCl (Dilaudid) 0.5 mg Q4H PRN IVP For Pain 01/08/19 20:15 01/15/19 20:14 01/12/19 05:26 Insulin Aspart (NovoLOG) BEFORE MEALS AND HS SUBQ 01/08/19 22:00 02/07/19 21:59 01/11/19 20:53 Isosorbide Mononitrate (Imdur) 30 mg DAILY ORAL 01/13/19 09:00 02/12/19 08:59 Isosorbide Mononitrate (Imdur) 30 mg ONCE ORAL 01/12/19 09:45 01/12/19 11:00 Levofloxacin 50 ml @ 50 mls/hr Q24H IVPB 01/12/19 14:00 01/19/19 13:59 Metoclopramide HCl (Reglan) 5 mg TIAC ORAL 01/09/19 06:30 02/08/19 08:59 01/11/19 11:24 Metoclopramide HCl (Reglan) 10 mg Q6H PRN IVP Nausea & Vomiting 01/08/19 20:30 02/07/19 20:29 01/12/19 05:26 Nateglinide (Starlix) 120 mg TIAC ORAL 01/09/19 06:30 02/08/19 06:29 01/11/19 17:45 Nitroglycerin (Ntg) 1 patch Q24H TDERMAL 01/11/19 14:00 02/10/19 13:59 01/11/19 14:01 Pantoprazole (Protonix) 40 mg EVERY 12 HOURS ORAL 01/08/19 21:00 02/07/19 20:59 01/11/19 20:51 Promethazine HCl/ Codeine (Phenergan with Codeine) 5 ml Q4H PRN ORAL For Cough 01/11/19 12:15 02/10/19 12:14 01/11/19 22:35 Sevelamer Carbonate (Renvela) 2,400 mg THREE TIMES A DAY ORAL 01/09/19 18:00 02/08/19 08:59 01/11/19 17:45 Isabelle Mitchell MD Jan 12, 2019 10:25
[2019-01-12 12:00] VITALS: BP 127/73
--- NOTE | 2019-01-12 13:28 | NUR ---
RD ASSESSMENT & RECOMMENDATIONS SEE CARE ACTIVITY FOR COMPLETE ASSESSMENT DAILY ESTIMATED NEEDS: Needs based on ESRD on HD, 57kg adj 30-35 kcals/kg [id number] total kcals 1.2-1.8 g protein/kg 68-103 g total protein Fluid per MD, on HD NUTRITION DIAGNOSIS: Increased kcal and protein needs r/t renal dysfunction as evidenced by pt w/ ESRD on HD PO DIET RECOMMENDATIONS: RENAL DIET / CCHO MED ADDITIONAL RECOMMENDATIONS: 1) Add NEPRO 1 tetra praveen daily (425 kcal/ 19g pro) 2) Obtain a calibrated bed scale wt 3) Add nephrovite x1 daily
--- NOTE | 2019-01-12 13:55 | Cardiology Report ---
APPROVED REPORT EXAM: Two-dimensional and M-mode echocardiogram with Doppler and color Doppler. INDICATION Congestive Heart Failure M-Mode DIMENSIONS IVSd1.2 (0.7-1.1cm)Left Atrium (MM)4.4 (1.6-4.0cm) LVDd4.1 (3.5-5.6cm)Aortic Root3.1 (2.0-3.7cm) PWd1.2 (0.7-1.1cm)Aortic Cusp Exc.1.0 (1.5-2.0cm) IVSs1.4 cm LVDs3.7 (2.5-4.0cm) PWs1.4 cm Normal left ventricular chamber size. Global left ventricular hypokinesis .Diastolic flattening of the VS suggetive of RV volume overload Left ventricular ejection fraction estimated to be 25-30%. Mild left ventricular hypertrophy by2-D. No evidence of pericardial effusion. Plueral effusion present . Mild left atrial enlargement. Right cardiac chamber sizes are within normal limits. Aortic valve calcification with decreased cusp excursion c/w aortic stenosis. Heavily thickened mitral valve leaflets with decreased cusp excursion. Heavily mitral annulus and aortic root calcification. Pulmonic valve not well visualized. IVC dilated at 2.5 cm without physiologic collapse suggestive of increased RA pressure.. A color flow and spectral Doppler study was performed and revealed: Mild aortic insufficiency . Peak aortic valve gradient of 42 mm Hg and a mean of 20 mmHg. Aortic valve area 1.1 cm2 calculated by continuity equation. Mild mitral regurgitation. Peak mitral valve gradient of 42 mm Hg and a mean of 23 mmHg. Mitral valve area was not adequately measured Mitral inflow velocities indicates possible pseudo normalization pattern implying moderately elevated left atrial pressure (Grade II ) Moderate to severe tricuspid regurgitation. Tricuspid systolic velocities suggests peak right ventricular systolic pressure of 61 mmHg,consistent with severe pulmonary hypertension .
[2019-01-12] MEDS ORDERED: Levofloxacin 250mg/D5W 50ml IVPB SCH (14:00)
[2019-01-12 16:00] VITALS: BP 106/87
--- NOTE | 2019-01-12 16:58 | General Progress Note ---
Assessment/Plan Problem List: (1) Pleural effusion ICD Codes: J90 - Pleural effusion, not elsewhere classified SNOMED: 21333567 (2) Cardiomyopathy ICD Codes: I42.9 - Cardiomyopathy, unspecified SNOMED: 32268122 (3) ESRD (end stage renal disease) on dialysis ICD Codes: N18.6 - End stage renal disease; Z99.2 - Dependence on renal dialysis SNOMED: 627000735 (4) Diabetic gastroparesis ICD Codes: E11.43 - Type 2 diabetes mellitus with diabetic autonomic (poly) neuropathy; K31.84 - Gastroparesis SNOMED: 048075116 (5) Anemia ICD Codes: D64.9 - Anemia SNOMED: 625948285 Status: stable Assessment/Plan HD and UF done 01/13 add imdure add nitro dig coreg and adjust dose 2D echo LOW EjFx Anti GERD Meds HHN Rx Pulm and Cardio advise BS control Repeat CXR post HD Subjective ROS Limited/Unobtainable: No Constitutional: Reports: other - feels better Allergies: Coded Allergies: No Known Allergies (Unverified , 12/16/17) Objective Last 24 Hour Vital Signs Date Time Temp Pulse Resp B/P (MAP) Pulse Ox O2 Delivery O2 Flow Rate FiO2 01/12/19 16:00 90 01/12/19 12:34 88 20 100 Room Air 21 01/12/19 12:21 88 18 100 Room Air 21 01/12/19 12:00 98.6 98 18 127/73 (91) 98 01/12/19 12:00 99 01/12/19 10:29 119/74 01/12/19 09:00 Room Air 01/12/19 09:00 92 119/74 01/12/19 08:00 98.8 92 18 119/74 (89) 97 01/12/19 08:00 98 01/12/19 07:28 Room Air 21 01/12/19 07:28 Room Air 21 01/12/19 05:35 127/78 01/12/19 04:00 93 01/12/19 04:00 98.6 93 20 127/78 (94) 98 01/12/19 00:00 90 01/12/19 00:00 98.4 90 17 122/82 (95) 97 01/11/19 22:00 128/78 01/11/19 21:00 96 109/78 01/11/19 21:00 Room Air 01/11/19 20:00 98.9 96 18 109/78 (88) 98 01/11/19 20:00 96 01/11/19 19:55 91 20 99 Room Air 21 01/11/19 19:44 90 20 99 Room Air 21 Intake and Output 01/11/19 01/12/19 19:00 07:00 Intake Total 360 ml 100 ml Output Total 3000 ml Balance -2640 ml 100 ml Intake Oral 360 ml 100 ml Output Hemodialysis UF 3000 ml Laboratory Tests 01/12/19 06:17: White Blood Count 9.0, Red Blood Count 3.96L, Hemoglobin 11.1L, Hematocrit 36.6L , Mean Corpuscular Volume 92, Mean Corpuscular Hemoglobin 28.1, Mean Corpuscular Hemoglobin Concent 30.5L, Red Cell Distribution Width 19.6H, Platelet Count 133L, Mean Platelet Volume 10.4H, Neutrophils (%) (Auto) 64.1, Lymphocytes (%) (Auto) 21.2, Monocytes (%) (Auto) 10.5H, Eosinophils (%) (Auto) 3.6H, Basophils (%) (Auto) 0.7, Sodium Level 140, Potassium Level 4.0, Chloride Level 100, Carbon Dioxide Level 29, Anion Gap 11, Blood Urea Nitrogen 37H, Creatinine 8.7H, Estimat Glomerular Filtration Rate 6.1, Glucose Level 77#, Calcium Level 9.4, Phosphorus Level 5.6H, Magnesium Level 2.1, Total Bilirubin 0.9, Aspartate Amino Transf (AST/SGOT) 10L, Alanine Aminotransferase (ALT/SGPT) 15, Alkaline Phosphatase 174H, Troponin I 0.100H, C-Reactive Protein, Quantitative 4.3H, Pro-B-Type Natriuretic Peptide > 25827G, Total Protein 7.1, Albumin 3.0L, Globulin 4.1, Albumin/Globulin Ratio 0.7L Height (Feet): 5 Height (Inches): 4.00 Weight (Pounds): 159 General Appearance: no apparent distress Cardiovascular: normal rate Respiratory/Chest: decreased breath sounds Abdomen: soft Thiago Galan MD Jan 12, 2019 16:58
--- NOTE | 2019-01-12 17:08 | Cardiology Progress Note ---
Assessment/Plan Assessment/Plan chf acute systolic Prosthetic mitral valve stenosis pulm htn RVE increased RA pressure cad s/p cabg and cath lv systolic dysfucntion pleural effusion [facility] arevewed last cath 02/2018 graft dependent patent graft last echo at [facility] 2017: Conclusions: 1. Low normal left ventricular systolic function. LV Ejection Fraction is 50 %. Left ventricular diastolic function is indeterminate in this study due to the presence of mitral valve repair or replacement. 2. Small pericardial effusion. No echocardiographic evidence to suggest cardiac tamponade. Large left pleural effusion seen. 3. Total wall motion score is 1.00. There are no regional wall motion abnormalities. 4. Normal right ventricular systolic function. 5. A bioprosthetic valve is present in the mitral position. There is trivial mitral regurgitation. The peak transmitral gradient is 17.0 mmHg. The mean transmitral gradient is 7.0 mmHg. The aortic cusps appear mildly thickened. The peak transaortic gradient is 20.0 mmHg. The mean transaortic gradient is 12.0 mmHg. No aortic regurgitation seen. Estimated PA Pressure is 31 mmHg. PA systolic pressure is at the upper limits of normal. now vl fucntion decreased ef 35% pasp increased to 61 mmhg and MV pg 42 mg 23 ( sever MS) , AV pg 42 mg 20 (mod ) need to see if between 2017 and now he has had anyc echos at dr fox office need more fludi / na restriction and or mor UF Subjective Cardiovascular: Reports: palpitations; Denies: chest pain, lightheadedness Respiratory: Reports: orthopnea, shortness of breath, SOB with excertion, SOB at rest Gastrointestinal/Abdominal: Denies: abdominal pain Objective Last 24 Hour Vital Signs Date Time Temp Pulse Resp B/P (MAP) Pulse Ox O2 Delivery O2 Flow Rate FiO2 01/12/19 16:00 90 01/12/19 12:34 88 20 100 Room Air 21 01/12/19 12:21 88 18 100 Room Air 21 01/12/19 12:00 98.6 98 18 127/73 (91) 98 01/12/19 12:00 99 01/12/19 10:29 119/74 01/12/19 09:00 Room Air 01/12/19 09:00 92 119/74 01/12/19 08:00 98.8 92 18 119/74 (89) 97 3/19/19 08:00 98 01/12/19 07:28 Room Air 21 01/12/19 07:28 Room Air 21 01/12/19 05:35 127/78 01/12/19 04:00 93 01/12/19 04:00 98.6 93 20 127/78 (94) 98 01/12/19 00:00 90 01/12/19 00:00 98.4 90 17 122/82 (95) 97 01/11/19 22:00 128/78 01/11/19 21:00 96 109/78 01/11/19 21:00 Room Air 01/11/19 20:00 98.9 96 18 109/78 (88) 98 01/11/19 20:00 96 01/11/19 19:55 91 20 99 Room Air 21 01/11/19 19:44 90 20 99 Room Air 21 General Appearance: no apparent distress, alert Neck: non-tender Cardiovascular: normal rate, systolic murmur Respiratory/Chest: decreased breath sounds - bases Abdomen: normal bowel sounds, non tender, soft Extremities: no swelling Intake and Output 01/11/19 01/12/19 19:00 07:00 Intake Total 360 ml 100 ml Output Total 3000 ml Balance -2640 ml 100 ml Intake Oral 360 ml 100 ml Output Hemodialysis UF 3000 ml Laboratory Tests Test 01/12/19 06:17 White Blood Count 9.0 K/UL (4.8-10.8) Red Blood Count 3.96 M/UL (4.20-5.40) L Hemoglobin 11.1 G/DL (12.0-16.0) L Hematocrit 36.6 % (37.0-47.0) L Mean Corpuscular Volume 92 FL (80-99) Mean Corpuscular Hemoglobin 28.1 PG (27.0-31.0) Mean Corpuscular Hemoglobin Concent 30.5 G/DL (32.0-36.0) L Red Cell Distribution Width 19.6 % (11.6-14.8) H Platelet Count 133 K/UL (150-450) L Mean Platelet Volume 10.4 FL (6.5-10.1) H Neutrophils (%) (Auto) 64.1 % (45.0-75.0) Lymphocytes (%) (Auto) 21.2 % (20.0-45.0) Monocytes (%) (Auto) 10.5 % (1.0-10.0) H Eosinophils (%) (Auto) 3.6 % (0.0-3.0) H Basophils (%) (Auto) 0.7 % (0.0-2.0) Sodium Level 140 MMOL/L (136-145) Potassium Level 4.0 MMOL/L (3.5-5.1) Chloride Level 100 MMOL/L (98-107) Carbon Dioxide Level 29 MMOL/L (21-32) Anion Gap 11 mmol/L (5-15) Blood Urea Nitrogen 37 mg/dL (7-18) H Creatinine 8.7 MG/DL (0.55-1.30) H Estimat Glomerular Filtration Rate 6.1 mL/min (>60) Glucose Level 77 MG/DL (74-106) # Calcium Level 9.4 MG/DL (8.5-10.1) Phosphorus Level 5.6 MG/DL (2.5-4.9) H Magnesium Level 2.1 MG/DL (1.8-2.4) Total Bilirubin 0.9 MG/DL (0.2-1.0) Aspartate Amino Transf (AST/SGOT) 10 U/L (15-37) L Alanine Aminotransferase (ALT/SGPT) 15 U/L (12-78) Alkaline Phosphatase 174 U/L (46-116) H Troponin I 0.100 ng/mL (0.000-0.056) C-Reactive Protein, Quantitative 4.3 mg/dL (0.00-0.90) H Pro-B-Type Natriuretic Peptide > 33361 pg/mL (0-125) H Total Protein 7.1 G/DL (6.4-8.2) Albumin 3.0 G/DL (3.4-5.0) L Globulin 4.1 g/dL Albumin/Globulin Ratio 0.7 (1.0-2.7) L Bill Paredes MD Jan 12, 2019 17:08
[2019-01-12] MEDS: Nitroglycerin Patch 0.4mg TDERMAL SCH (17:36)
[2019-01-12] MEDS: HydrALAZINE 25mg tab ORAL SCH ×2 (17:39→21:34)
--- NOTE | 2019-01-12 19:18 | NUR ---
HAND-OFF: Report given to Ameya Palmer RN. Patient sitting up in bed, awake and alert, bed in lowest position, call light within reach, in no apparent distress.
--- NOTE | 2019-01-12 19:25 | NUR ---
NURSE NOTES: Received report from RON RENO. Pt was resting in the bed AO x 4 w.o any acute distress noted. secured entrance monitor is on. Bed is the lowest position and call light is within reach. Will continue to follow the plan of care.
[2019-01-12 20:00] VITALS: BP 124/66
[2019-01-12] MEDS: Carvedilol 25mg Tab ORAL SCH (21:34)
[2019-01-13] VITALS: BP 121/69
[2019-01-13 04:00] VITALS: BP 141/80
[2019-01-13] MEDS: HydrALAZINE 25mg tab ORAL SCH ×3 (06:00→21:35)
[2019-01-13] MEDS: Promethazine/Codeine 5ml UD ORAL PRN ×2 (06:04→11:31)
[2019-01-13] MEDS: NovoLOG Insulin Flexpen SUBQ SCH ×4 (06:06→20:50)
[2019-01-13 06:50] LABS: BASOPHILS % (AUTO) 0.8 % (0.0-2.0); EOSINOPHILS % (AUTO) 4.2 % (0.0-3.0); HEMATOCRIT 33.6 % (37.0-47.0); HEMOGLOBIN 10.2 G/DL (12.0-16.0); LYMPHOCYTES % (AUTO) 20.7 % (20.0-45.0); MEAN CORPUSCULAR VOLUME 92 FL (80-99); MONOCYTES % (AUTO) 8.2 % (1.0-10.0); PLATELET COUNT 117 K/UL (150-450); RED BLOOD COUNT 3.65 M/UL (4.20-5.40); RED CELL DISTRIBUTION WIDTH 18.8 % (11.6-14.8); WHITE BLOOD COUNT 7.5 K/UL (4.8-10.8)
--- NOTE | 2019-01-13 07:19 | NUR ---
HAND-OFF: Report given to Aung RN.
--- NOTE | 2019-01-13 07:20 | NUR ---
NURSE NOTES: Received report from SHADIA Hou. Patient in bed resting, no active s/s cardiac, respiratory distress noticed at this time. Patient on room air, SR with HR 79, denies pain at this time, AOx4. IV on right FA 22G asymptomatic, patent, intact. AV shunt on left arm, bruit and thrill present. Endorsed patient scheduled for HD with [facility], clarified with Mikayla from [facility]. Bed in lowest position, side rails upx3, call light within reach. Will continue to monitor.
[2019-01-13 07:27] LABS: ALANINE AMINOTRANSFERASE 9 U/L (12-78); ALBUMIN 2.7 G/DL (3.4-5.0); ALBUMIN/GLOBULIN RATIO 0.7 (1.0-2.7); ALKALINE PHOSPHATASE 153 U/L (46-116); ANION GAP 13 mmol/L (5-15); ASPARTATE AMINO TRANSFERASE 11 U/L (15-37); BILIRUBIN,TOTAL 0.6 MG/DL (0.2-1.0); BLOOD UREA NITROGEN 56 mg/dL (7-18); CALCIUM 9.3 MG/DL (8.5-10.1); CARBON DIOXIDE 27 MMOL/L (21-32); CHLORIDE 100 MMOL/L (98-107); CREATININE 10.8 MG/DL (0.55-1.30); PHOSPHORUS 6.3 MG/DL (2.5-4.9); POTASSIUM 4.9 MMOL/L (3.5-5.1); SODIUM 140 MMOL/L (136-145)
[2019-01-13] MEDS: Albuterol ud Inhalation HHN SCH ×3 (07:44→19:00)
--- NOTE | 2019-01-13 07:49 | NUR ---
NURSE NOTES: Called [facility] nephrology tele: [phone] spoke with Med and informed patient schedule for 01/13/[address] Galan. Will continue to monitor.
[2019-01-13 08:00] VITALS: BP 119/73
[2019-01-13] MEDS: Docusate 100mg cap ORAL SCH ×3 (08:32→17:13)
--- NOTE | 2019-01-13 08:55 | Diagnostic Imaging Report ---
Indication: Cough Technique: One view of the chest Comparison: 01/08/2019 Findings: Large left pleural effusion again demonstrated. Right lung and pleural space are clear. Left upper lung is clear. Heart size is upper limits normal. There is evidence of prior CABG. Impression: Unchanged, over 4 days, findings as above.
[2019-01-13] MEDS: Metoclopramide 10mg/2ml Inj IVP PRN (08:59)
[2019-01-13] MEDS: Aspirin EC 81mg tab ORAL SCH (09:00)
[2019-01-13] MEDS: Heparin 5000 units/ml inj SUBQ SCH (09:00)
[2019-01-13] MEDS: Imdur 30mg tab ORAL SCH (09:00)
[2019-01-13] MEDS ORDERED: Digoxin 0.125mg tab ORAL SCH (09:00)
[2019-01-13] MEDS: Carvedilol 25mg Tab ORAL SCH ×2 (09:00→20:38)
--- NOTE | 2019-01-13 11:05 | Pulmonology Progress Note ---
Assessment/Plan Problems: (1) Purulent bronchitis (2) ACS (acute coronary syndrome) (3) ESRD (end stage renal disease) on dialysis (4) HTN (hypertension) (5) IDDM (insulin dependent diabetes mellitus) (6) Anemia (7) Cardiomyopathy Assessment/Plan less cough, small amount of blood in sputum dc aspirin and heparin sq b/o hemoptysis check sputum, negative cultures iv abx respiratory treatment symptomatic treatment antitussives HD by nephrology CXR reviewed dvt prophylaxis. f/u cardiology recommendations. Subjective ROS Limited/Unobtainable: No Constitutional: Reports: no symptoms HEENT: Repors: no symptoms Respiratory: Reports: no symptoms Allergies: Coded Allergies: No Known Allergies (Unverified , 12/16/17) Objective Last 24 Hour Vital Signs Date Time Temp Pulse Resp B/P (MAP) Pulse Ox O2 Delivery O2 Flow Rate FiO2 01/13/19 09:00 Room Air 01/13/19 09:00 119/73 01/13/19 09:00 77 119/73 01/13/19 09:00 77 01/13/19 08:00 98.3 77 20 119/73 (88) 100 77 01/13/19 08:00 76 01/13/19 07:45 Room Air 01/13/19 07:45 Room Air 01/13/19 06:00 105/60 01/13/19 04:00 79 01/13/19 04:00 98.4 81 20 141/80 (100) 95 81 01/13/19 00:00 97.7 78 20 121/69 (86) 97 01/13/19 00:00 120 01/12/19 21:34 120/75 01/12/19 21:34 93 120/75 01/12/19 21:00 Room Air 01/12/19 20:00 86 01/12/19 20:00 98.2 80 20 124/66 (85) 94 01/12/19 19:55 83 20 100 Room Air 21 01/12/19 19:43 92 18 99 Room Air 21 01/12/19 17:39 127/73 01/12/19 17:36 127/73 01/12/19 16:00 99.6 90 16 106/87 (93) 100 01/12/19 16:00 90 01/12/19 12:34 88 20 100 Room Air 21 01/12/19 12:21 88 18 100 Room Air 21 01/12/19 12:00 98.6 98 18 127/73 (91) 98 01/12/19 12:00 99 Intake and Output 01/12/19 01/13/19 18:59 06:59 Intake Total 410 ml 120 ml Balance 410 ml 120 ml Intake Oral 360 ml 120 ml IV Total 50 ml General Appearance: WD/WN HEENT: normocephalic, atraumatic Respiratory/Chest: chest wall non-tender, lungs clear Breasts: no masses Cardiovascular: normal peripheral pulses Abdomen: normal bowel sounds, soft, non tender, no organomegaly Genitourinary: normal external genitalia Extremities: no cyanosis Skin: no rash Neurologic/Psychiatric: cash manager II-XII grossly normal Microbiology Date/Time Source Procedure Growth Status 01/12/19 03:30 Sputum Gram Stain - Final Resulted 01/12/19 03:30 Sputum Sputum Culture - Preliminary NORMAL UPPER RESPIRATORY LIDIA AT 24 ... Resulted Laboratory Tests 01/13/19 06:10: White Blood Count 7.5, Red Blood Count 3.65L, Hemoglobin 10.2L, Hematocrit 33.6L , Mean Corpuscular Volume 92, Mean Corpuscular Hemoglobin 27.8, Mean Corpuscular Hemoglobin Concent 30.2L, Red Cell Distribution Width 18.8H, Platelet Count 117L, Mean Platelet Volume 8.9, Neutrophils (%) (Auto) 66.0, Lymphocytes (%) (Auto) 20.7, Monocytes (%) (Auto) 8.2, Eosinophils (%) (Auto) 4.2H, Basophils (%) (Auto) 0.8, Sodium Level 140, Potassium Level 4.9, Chloride Level 100, Carbon Dioxide Level 27, Anion Gap 13, Blood Urea Nitrogen 56H, Creatinine 10.8H, Estimat Glomerular Filtration Rate 4.7, Glucose Level 95, Uric Acid 7.1, Calcium Level 9.3, Phosphorus Level 6.3H, Magnesium Level 2.2, Total Bilirubin 0.6, Aspartate Amino Transf (AST/SGOT) 11L, Alanine Aminotransferase (ALT/SGPT) 9L, Alkaline Phosphatase 153H, Pro-B-Type Natriuretic Peptide > 40595A, Total Protein 6.5, Albumin 2.7L, Globulin 3.8, Albumin/Globulin Ratio 0.7L, Digoxin Level 1.4 Current Medications Medications (Trade) Dose Ordered Sig/Maci Route PRN Reason Start Time Stop Time Status Last Admin Dose Admin Albuterol Sulfate (Proventil) 2.5 mg TIDRT HHN 01/09/19 15:45 01/14/19 15:44 01/12/19 19:42 Aspirin (Ecotrin) 81 mg DAILY ORAL 01/09/19 09:00 02/08/19 08:59 01/12/19 10:25 Atorvastatin Calcium (Lipitor) 10 mg BEDTIME ORAL 01/08/19 21:00 02/07/19 20:59 01/12/19 21:34 Carvedilol (Coreg) 25 mg EVERY 12 HOURS ORAL 01/12/19 21:00 02/10/19 20:59 01/12/19 21:34 Dextrose (Dextrose 50%) 25 ml Q30M PRN IV Hypoglycemia 01/08/19 21:45 02/07/19 21:44 Dextrose (Dextrose 50%) 50 ml Q30M PRN IV Hypoglycemia 01/08/19 21:45 02/07/19 21:44 Digoxin (Lanoxin) 0.125 mg QOD ORAL 01/13/19 09:00 02/12/19 08:59 Diphenhydramine HCl (Benadryl) 25 mg Q6H PRN IVP Itching and during HD 01/11/19 10:30 02/10/19 10:29 Docusate Sodium (Colace) 100 mg TID ORAL 01/09/19 09:00 02/08/19 08:59 01/13/19 08:32 Folic Acid (Folate) 3 mg DAILY ORAL 01/09/19 12:45 02/08/19 12:44 01/12/19 10:25 Heparin Sodium (Porcine) (Heparin 5000 units/ml) 5,000 units EVERY 12 HOURS SUBQ 01/09/19 09:00 02/08/19 08:59 01/10/19 21:54 Hydralazine HCl (Apresoline) 25 mg Q8HR ORAL 01/12/19 14:00 02/08/19 21:59 01/12/19 21:34 Hydromorphone HCl (Dilaudid) 0.5 mg Q4H PRN IVP For Pain 01/08/19 20:15 01/15/19 20:14 01/12/19 21:41 Insulin Aspart (NovoLOG) BEFORE MEALS AND HS SUBQ 01/08/19 22:00 02/07/19 21:59 01/12/19 21:50 Isosorbide Mononitrate (Imdur) 30 mg DAILY ORAL 01/13/19 09:00 02/12/19 08:59 Levofloxacin 50 ml @ 50 mls/hr Q24H IVPB 01/12/19 14:00 01/19/19 13:59 01/12/19 17:34 Metoclopramide HCl (Reglan) 5 mg TIAC ORAL 01/09/19 06:30 02/08/19 08:59 01/12/19 17:39 Metoclopramide HCl (Reglan) 10 mg Q6H PRN IVP Nausea & Vomiting 01/08/19 20:30 02/07/19 20:29 01/13/19 08:59 Nateglinide (Starlix) 120 mg TIAC ORAL 01/09/19 06:30 02/08/19 06:29 01/12/19 17:39 Nitroglycerin (Ntg) 1 patch Q24H TDERMAL 01/11/19 14:00 02/10/19 13:59 01/12/19 17:36 Pantoprazole (Protonix) 40 mg EVERY 12 HOURS ORAL 01/08/19 21:00 02/07/19 20:59 01/12/19 21:34 Promethazine HCl/ Codeine (Phenergan with Codeine) 5 ml Q4H PRN ORAL For Cough 01/11/19 12:15 02/10/19 12:14 01/13/19 06:04 Sevelamer Carbonate (Renvela) 2,400 mg THREE TIMES A DAY ORAL 01/09/19 18:00 02/08/19 08:59 01/12/19 17:34 Isabelle Mitchell MD Jan 13, 2019 11:05
--- NOTE | 2019-01-13 11:40 | NUR ---
NURSE NOTES: Patient got HD, tolerating well 3L out, last BP 131/72. Will continue to monitor.
--- NOTE | 2019-01-13 11:43 | NUR ---
NURSE NOTES: Dr. Galan at bedside asked for parameter for starlix, per Dr. Galan no parameter needed as long as patient eats.
[2019-01-13 12:00] VITALS: BP 105/70
--- NOTE | 2019-01-13 12:08 | General Progress Note ---
Assessment/Plan Problem List: (1) Pleural effusion ICD Codes: J90 - Pleural effusion, not elsewhere classified SNOMED: 96713692 (2) Cardiomyopathy ICD Codes: I42.9 - Cardiomyopathy, unspecified SNOMED: 66204650 (3) ESRD (end stage renal disease) on dialysis ICD Codes: N18.6 - End stage renal disease; Z99.2 - Dependence on renal dialysis SNOMED: 774474975 (4) Diabetic gastroparesis ICD Codes: E11.43 - Type 2 diabetes mellitus with diabetic autonomic (poly) neuropathy; K31.84 - Gastroparesis SNOMED: 035261972 (5) Anemia ICD Codes: D64.9 - Anemia SNOMED: 185494021 Status: stable Assessment/Plan HD and UF done 01/13 repeat 01/14 and DC add imdure add nitro dig coreg and adjust dose 2D echo LOW EjFx Anti GERD Meds HHN Rx Pulm and Cardio advise BS control Repeat CXR post HD Subjective ROS Limited/Unobtainable: No Constitutional: Reports: other - feels better Allergies: Coded Allergies: No Known Allergies (Unverified , 12/16/17) Objective Last 24 Hour Vital Signs Date Time Temp Pulse Resp B/P (MAP) Pulse Ox O2 Delivery O2 Flow Rate FiO2 01/13/19 09:00 Room Air 01/13/19 09:00 119/73 01/13/19 09:00 77 119/73 01/13/19 09:00 77 01/13/19 08:00 98.3 77 20 119/73 (88) 100 77 01/13/19 08:00 76 01/13/19 07:45 Room Air 01/13/19 07:45 Room Air 01/13/19 06:00 105/60 01/13/19 04:00 79 01/13/19 04:00 98.4 81 20 141/80 (100) 95 81 01/13/19 00:00 97.7 78 20 121/69 (86) 97 01/13/19 00:00 120 01/12/19 21:34 120/75 01/12/19 21:34 93 120/75 01/12/19 21:00 Room Air 01/12/19 20:00 86 01/12/19 20:00 98.2 80 20 124/66 (85) 94 01/12/19 19:55 83 20 100 Room Air 21 01/12/19 19:43 92 18 99 Room Air 21 01/12/19 17:39 127/73 01/12/19 17:36 127/73 01/12/19 16:00 99.6 90 16 106/87 (93) 100 01/12/19 16:00 90 01/12/19 12:34 88 20 100 Room Air 21 01/12/19 12:21 88 18 100 Room Air 21 Intake and Output 01/12/19 01/13/19 18:59 06:59 Intake Total 410 ml 120 ml Balance 410 ml 120 ml Intake Oral 360 ml 120 ml IV Total 50 ml Laboratory Tests 01/13/19 06:10: White Blood Count 7.5, Red Blood Count 3.65L, Hemoglobin 10.2L, Hematocrit 33.6L , Mean Corpuscular Volume 92, Mean Corpuscular Hemoglobin 27.8, Mean Corpuscular Hemoglobin Concent 30.2L, Red Cell Distribution Width 18.8H, Platelet Count 117L, Mean Platelet Volume 8.9, Neutrophils (%) (Auto) 66.0, Lymphocytes (%) (Auto) 20.7, Monocytes (%) (Auto) 8.2, Eosinophils (%) (Auto) 4.2H, Basophils (%) (Auto) 0.8, Sodium Level 140, Potassium Level 4.9, Chloride Level 100, Carbon Dioxide Level 27, Anion Gap 13, Blood Urea Nitrogen 56H, Creatinine 10.8H, Estimat Glomerular Filtration Rate 4.7, Glucose Level 95, Uric Acid 7.1, Calcium Level 9.3, Phosphorus Level 6.3H, Magnesium Level 2.2, Total Bilirubin 0.6, Aspartate Amino Transf (AST/SGOT) 11L, Alanine Aminotransferase (ALT/SGPT) 9L, Alkaline Phosphatase 153H, Pro-B-Type Natriuretic Peptide > 53100T, Total Protein 6.5, Albumin 2.7L, Globulin 3.8, Albumin/Globulin Ratio 0.7L, Digoxin Level 1.4 Height (Feet): 5 Height (Inches): 4.00 Weight (Pounds): 168 General Appearance: no apparent distress Cardiovascular: normal rate Respiratory/Chest: decreased breath sounds Abdomen: soft Thiago Galan MD Jan 13, 2019 12:08
--- NOTE | 2019-01-13 13:06 | NUR ---
CASE MANAGEMENT:REVIEW 01/13/19 SI: PURULENT BRONCHITIS. ACS ESRD ON HD 98.5 81 20 105/70 100% ON RA H/H-10.2/33.6 PLT-117 BUN+56 CR+10.8 TROPONIN(+) 0.100 IS: IV LEVAQUIN Q48HRS DIGOXIN PO QOD IMDUR PO QD COREG PO Q12 HYDRALAZINE PO Q8HRS : TELEMETRY STATUS DCP: PATIENT IS FROM HOME
[2019-01-13] MEDS: Nitroglycerin Patch 0.4mg TDERMAL SCH (13:09)
[2019-01-13 16:00] VITALS: BP 123/80
--- NOTE | 2019-01-13 17:34 | NUR ---
NURSE NOTES: Called [facility] nephrology tele: [phone] spoke with Adal and informed patient schedule for HD on 01/14/[address] Galan. Will continue to monitor.
--- NOTE | 2019-01-13 19:01 | Cardiology Progress Note ---
Assessment/Plan Assessment/Plan chf acute systolic Prosthetic mitral valve stenosis pulm htn RVE increased RA pressure cad s/p cabg and cath lv systolic dysfucntion pleural effusion [place] [facility] arevewed last cath 02/2018 graft dependent patent graft last echo at [facility] 2017: Conclusions: 1. Low normal left ventricular systolic function. LV Ejection Fraction is 50 %. Left ventricular diastolic function is indeterminate in this study due to the presence of mitral valve repair or replacement. 2. Small pericardial effusion. No echocardiographic evidence to suggest cardiac tamponade. Large left pleural effusion seen. 3. Total wall motion score is 1.00. There are no regional wall motion abnormalities. 4. Normal right ventricular systolic function. 5. A bioprosthetic valve is present in the mitral position. There is trivial mitral regurgitation. The peak transmitral gradient is 17.0 mmHg. The mean transmitral gradient is 7.0 mmHg. The aortic cusps appear mildly thickened. The peak transaortic gradient is 20.0 mmHg. The mean transaortic gradient is 12.0 mmHg. No aortic regurgitation seen. Estimated PA Pressure is 31 mmHg. PA systolic pressure is at the upper limits of normal. now vl fucntion decreased ef 35% pasp increased to 61 mmhg and MV pg 42 mg 23 ( sever MS) , AV pg 42 mg 20 (mod ) need to see if between 2017 and now he has had anyc echos at dr fox office need more fludi / na restriction and or more UF i have instructed top see her home care manager dr alvarado to evaluate the mv prothesis noted plans [place] more uf tomorrow will order venous duplex of leg may need thoracentesis eventually Subjective Cardiovascular: Denies: chest pain, lightheadedness Respiratory: Reports: shortness of breath - imporved with hhn and dialysii; Denies: cough Gastrointestinal/Abdominal: Denies: abdominal pain Genitourinary: Denies: burning Objective Last 24 Hour Vital Signs Date Time Temp Pulse Resp B/P (MAP) Pulse Ox O2 Delivery O2 Flow Rate FiO2 01/13/19 16:00 98.6 85 20 123/80 (94) 99 85 01/13/19 16:00 86 01/13/19 13:11 106/64 01/13/19 13:09 106/64 01/13/19 12:51 88 18 99 Room Air 21 01/13/19 12:41 86 18 99 Room Air 21 01/13/19 12:00 79 01/13/19 12:00 98.5 81 20 105/70 (82) 100 81 01/13/19 09:00 Room Air 01/13/19 09:00 119/73 01/13/19 09:00 77 119/73 01/13/19 09:00 77 01/13/19 08:00 98.3 77 20 119/73 (88) 100 77 01/13/19 08:00 76 01/13/19 07:45 Room Air 01/13/19 07:45 Room Air 01/13/19 06:00 105/60 01/13/19 04:00 79 01/13/19 04:00 98.4 81 20 141/80 (100) 95 81 01/13/19 00:00 97.7 78 20 121/69 (86) 97 01/13/19 00:00 120 01/12/19 21:34 120/75 01/12/19 21:34 93 120/75 01/12/19 21:00 Room Air 01/12/19 20:00 86 01/12/19 20:00 98.2 80 20 124/66 (85) 94 01/12/19 19:55 83 20 100 Room Air 21 01/12/19 19:43 92 18 99 Room Air 21 General Appearance: alert Neck: supple Cardiovascular: normal rate Respiratory/Chest: decreased breath sounds - left Abdomen: non tender, soft Extremities: no swelling Intake and Output 01/12/19 01/13/19 19:00 07:00 Intake Total 410 ml 120 ml Balance 410 ml 120 ml Intake Oral 360 ml 120 ml IV Total 50 ml Laboratory Tests Test 01/13/19 06:10 White Blood Count 7.5 K/UL (4.8-10.8) Red Blood Count 3.65 M/UL (4.20-5.40) L Hemoglobin 10.2 G/DL (12.0-16.0) L Hematocrit 33.6 % (37.0-47.0) L Mean Corpuscular Volume 92 FL (80-99) Mean Corpuscular Hemoglobin 27.8 PG (27.0-31.0) Mean Corpuscular Hemoglobin Concent 30.2 G/DL (32.0-36.0) L Red Cell Distribution Width 18.8 % (11.6-14.8) H Platelet Count 117 K/UL (150-450) L Mean Platelet Volume 8.9 FL (6.5-10.1) Neutrophils (%) (Auto) 66.0 % (45.0-75.0) Lymphocytes (%) (Auto) 20.7 % (20.0-45.0) Monocytes (%) (Auto) 8.2 % (1.0-10.0) Eosinophils (%) (Auto) 4.2 % (0.0-3.0) H Basophils (%) (Auto) 0.8 % (0.0-2.0) Sodium Level 140 MMOL/L (136-145) Potassium Level 4.9 MMOL/L (3.5-5.1) Chloride Level 100 MMOL/L (98-107) Carbon Dioxide Level 27 MMOL/L (21-32) Anion Gap 13 mmol/L (5-15) Blood Urea Nitrogen 56 mg/dL (7-18) H Creatinine 10.8 MG/DL (0.55-1.30) H Estimat Glomerular Filtration Rate 4.7 mL/min (>60) Glucose Level 95 MG/DL (74-106) Uric Acid 7.1 MG/DL (2.6-7.2) Calcium Level 9.3 MG/DL (8.5-10.1) Phosphorus Level 6.3 MG/DL (2.5-4.9) H Magnesium Level 2.2 MG/DL (1.8-2.4) Total Bilirubin 0.6 MG/DL (0.2-1.0) Aspartate Amino Transf (AST/SGOT) 11 U/L (15-37) L Alanine Aminotransferase (ALT/SGPT) 9 U/L (12-78) L Alkaline Phosphatase 153 U/L (46-116) H Pro-B-Type Natriuretic Peptide > 62781 pg/mL (0-125) H Total Protein 6.5 G/DL (6.4-8.2) Albumin 2.7 G/DL (3.4-5.0) L Globulin 3.8 g/dL Albumin/Globulin Ratio 0.7 (1.0-2.7) L Digoxin Level 1.4 NG/ML (0.9-2.0) Microbiology Date/Time Source Procedure Growth Status 01/12/19 03:30 Sputum Gram Stain - Final Resulted 01/12/19 03:30 Sputum Sputum Culture - Preliminary NORMAL UPPER RESPIRATORY LIDIA AT 24 ... Resulted Bill Praedes MD Jan 13, 2019 19:01
--- NOTE | 2019-01-13 19:55 | NUR ---
HAND-OFF: Report given to SHADIA Brumfield.
--- NOTE | 2019-01-13 19:56 | NUR ---
NURSE NOTES: Got report from Andriy RENO. Pt in stable condition. Denies any pain. No s/s of distress noted. Pt resting in bed comfortably. Bed in low and locked position, call light within reach, bedside table within reach. Continue to monitor.
[2019-01-13 20:00] VITALS: BP 109/73
[2019-01-13] MEDS: Hydromorphone 0.5mg/0.5ml inj IVP PRN (23:18)
[2019-01-14] VITALS: BP 114/75
[2019-01-14 04:20] VITALS: BP 132/76
[2019-01-14] MEDS: HydrALAZINE 25mg tab ORAL SCH ×2 (06:00→14:00)
[2019-01-14] MEDS: NovoLOG Insulin Flexpen SUBQ SCH ×2 (06:17→11:30)
[2019-01-14 06:51] LABS: ALANINE AMINOTRANSFERASE 9 U/L (12-78); ALBUMIN 2.8 G/DL (3.4-5.0); ALBUMIN/GLOBULIN RATIO 0.7 (1.0-2.7); ALKALINE PHOSPHATASE 151 U/L (46-116); ANION GAP 15 mmol/L (5-15); ASPARTATE AMINO TRANSFERASE 13 U/L (15-37); BILIRUBIN,TOTAL 0.6 MG/DL (0.2-1.0); BLOOD UREA NITROGEN 52 mg/dL (7-18); CALCIUM 9.3 MG/DL (8.5-10.1); CARBON DIOXIDE 25 MMOL/L (21-32); CHLORIDE 100 MMOL/L (98-107); CREATININE 9.4 MG/DL (0.55-1.30); PHOSPHORUS 6.2 MG/DL (2.5-4.9); POTASSIUM 4.7 MMOL/L (3.5-5.1); SODIUM 140 MMOL/L (136-145)
--- NOTE | 2019-01-14 07:30 | NUR ---
NURSE NOTES: Received report from Octaviano RENO. AC x4.No c/o pain. Sitting in bed and eating breakfast. IV site RFA 22G SL, patent intact. AV shunt on left arm bruit and thrill noted. No signs of distress noted. Bed in lowest position locked. Explain patient will get HD today and possible discharge home today. Will continue to monitor with plan of care.
[2019-01-14 07:53] LABS: BASOPHILS % (AUTO) 0.8 % (0.0-2.0); EOSINOPHILS % (AUTO) 4.9 % (0.0-3.0); HEMATOCRIT 35.6 % (37.0-47.0); HEMOGLOBIN 10.6 G/DL (12.0-16.0); LYMPHOCYTES % (AUTO) 26.2 % (20.0-45.0); MEAN CORPUSCULAR VOLUME 91 FL (80-99); MONOCYTES % (AUTO) 8.9 % (1.0-10.0); NEUTROPHILS % (AUTO) 59.2 % (45.0-75.0); PLATELET COUNT 124 K/UL (150-450); RED BLOOD COUNT 3.92 M/UL (4.20-5.40); RED CELL DISTRIBUTION WIDTH 18.3 % (11.6-14.8)
[2019-01-14 08:00] VITALS: BP 121/70
[2019-01-14] MEDS: Albuterol ud Inhalation HHN SCH ×2 (08:22→13:34)
[2019-01-14] MEDS: Docusate 100mg cap ORAL SCH ×2 (10:02→13:00)
[2019-01-14] MEDS: Imdur 30mg tab ORAL SCH (10:02)
[2019-01-14] MEDS: Carvedilol 25mg Tab ORAL SCH (10:03)
--- NOTE | 2019-01-14 11:50 | Pulmonology Progress Note ---
Assessment/Plan Problems: (1) Purulent bronchitis (2) ACS (acute coronary syndrome) (3) ESRD (end stage renal disease) on dialysis (4) HTN (hypertension) (5) IDDM (insulin dependent diabetes mellitus) (6) Anemia (7) Cardiomyopathy Assessment/Plan less cough, small amount of blood in sputum dc aspirin and heparin sq b/o hemoptysis check sputum, negative cultures doing much better respiratory treatment symptomatic treatment antitussives HD by nephrology CXR reviewed dvt prophylaxis. f/u cardiology recommendations. Subjective ROS Limited/Unobtainable: No Constitutional: Reports: no symptoms HEENT: Repors: no symptoms Respiratory: Reports: no symptoms Allergies: Coded Allergies: No Known Allergies (Unverified , 12/16/17) Objective Last 24 Hour Vital Signs Date Time Temp Pulse Resp B/P (MAP) Pulse Ox O2 Delivery O2 Flow Rate FiO2 01/14/19 10:03 89 121/70 01/14/19 10:02 121/70 01/14/19 09:00 Room Air 01/14/19 08:33 89 20 98 Room Air 21 01/14/19 08:22 88 20 96 Room Air 21 01/14/19 08:00 97.9 90 18 121/70 (87) 99 90 01/14/19 06:00 132/76 01/14/19 04:20 79 01/14/19 04:20 97.7 86 20 132/76 (94) 98 86 01/14/19 00:00 98.1 82 20 114/75 (88) 98 82 01/14/19 00:00 78 01/13/19 23:49 98.2 01/13/19 21:35 109/73 01/13/19 21:00 Room Air 01/13/19 20:38 81 109/73 01/13/19 20:00 98.2 81 20 109/73 (85) 99 81 01/13/19 20:00 79 01/13/19 19:27 Room Air 01/13/19 19:27 Room Air 01/13/19 16:00 98.6 85 20 123/80 (94) 99 85 01/13/19 16:00 86 01/13/19 13:11 106/64 01/13/19 13:09 106/64 01/13/19 12:51 88 18 99 Room Air 21 01/13/19 12:41 86 18 99 Room Air 21 01/13/19 12:00 79 01/13/19 12:00 98.5 81 20 105/70 (82) 100 81 Intake and Output 01/13/19 01/14/19 19:00 07:00 Intake Total 360 ml 240 ml Balance 360 ml 240 ml Intake Oral 360 ml 240 ml Objective General Appearance: cachetic HEENT: normocephalic, atraumatic Respiratory/Chest: chest wall non-tender, lungs clear Cardiovascular: normal peripheral pulses, regular rhythm Abdomen: normal bowel sounds, soft, non tender Genitourinary: normal external genitalia Extremities: no clubbing Microbiology Date/Time Source Procedure Growth Status 01/12/19 03:30 Sputum Gram Stain - Final Complete 01/12/19 03:30 Sputum Sputum Culture - Final NORMAL UPPER RESPIRATORY LIDIA PRESENT Complete Laboratory Tests 01/14/19 06:10: White Blood Count 7.0, Red Blood Count 3.92L, Hemoglobin 10.6L, Hematocrit 35.6L , Mean Corpuscular Volume 91, Mean Corpuscular Hemoglobin 27.0, Mean Corpuscular Hemoglobin Concent 29.8L, Red Cell Distribution Width 18.3H, Platelet Count 124L, Mean Platelet Volume 10.5H, Neutrophils (%) (Auto) 59.2, Lymphocytes (%) (Auto) 26.2, Monocytes (%) (Auto) 8.9, Eosinophils (%) (Auto) 4.9H, Basophils (%) (Auto) 0.8, Sodium Level 140, Potassium Level 4.7, Chloride Level 100, Carbon Dioxide Level 25, Anion Gap 15, Blood Urea Nitrogen 52H, Creatinine 9.4H, Estimat Glomerular Filtration Rate 5.5, Glucose Level 67L, Calcium Level 9.3, Phosphorus Level 6.2H, Total Bilirubin 0.6, Aspartate Amino Transf (AST/SGOT) 13L, Alanine Aminotransferase (ALT/SGPT) 9L, Alkaline Phosphatase 151H, Troponin I 0.084H, Total Protein 6.8, Albumin 2.8L, Globulin 4.0, Albumin/Globulin Ratio 0.7L Current Medications Medications (Trade) Dose Ordered Sig/Maci Route PRN Reason Start Time Stop Time Status Last Admin Dose Admin Albuterol Sulfate (Proventil) 2.5 mg TIDRT HHN 01/09/19 15:45 01/14/19 15:44 01/14/19 08:22 Atorvastatin Calcium (Lipitor) 10 mg BEDTIME ORAL 01/08/19 21:00 02/07/19 20:59 01/13/19 20:39 Carvedilol (Coreg) 25 mg EVERY 12 HOURS ORAL 01/12/19 21:00 02/10/19 20:59 01/14/19 10:03 Dextrose (Dextrose 50%) 25 ml Q30M PRN IV Hypoglycemia 01/08/19 21:45 02/07/19 21:44 Dextrose (Dextrose 50%) 50 ml Q30M PRN IV Hypoglycemia 01/08/19 21:45 02/07/19 21:44 Digoxin (Lanoxin) 0.125 mg QOD ORAL 01/13/19 09:00 02/12/19 08:59 Diphenhydramine HCl (Benadryl) 25 mg Q6H PRN IVP Itching and during HD 01/11/19 10:30 02/10/19 10:29 Docusate Sodium (Colace) 100 mg TID ORAL 01/09/19 09:00 02/08/19 08:59 01/14/19 10:02 Folic Acid (Folate) 3 mg DAILY ORAL 01/09/19 12:45 02/08/19 12:44 01/14/19 10:02 Hydralazine HCl (Apresoline) 25 mg Q8HR ORAL 01/12/19 14:00 02/08/19 21:59 01/12/19 21:34 Hydromorphone HCl (Dilaudid) 0.5 mg Q4H PRN IVP For Pain 01/08/19 20:15 01/15/19 20:14 01/13/19 23:18 Insulin Aspart (NovoLOG) BEFORE MEALS AND HS SUBQ 01/08/19 22:00 02/07/19 21:59 01/13/19 20:50 Isosorbide Mononitrate (Imdur) 30 mg DAILY ORAL 01/13/19 09:00 02/12/19 08:59 01/14/19 10:02 Levofloxacin 50 ml @ 50 mls/hr Q48H IVPB 01/14/19 18:00 01/21/19 17:59 Metoclopramide HCl (Reglan) 5 mg TIAC ORAL 01/09/19 06:30 02/08/19 08:59 01/14/19 06:05 Metoclopramide HCl (Reglan) 10 mg Q6H PRN IVP Nausea & Vomiting 01/08/19 20:30 02/07/19 20:29 01/13/19 08:59 Nateglinide (Starlix) 120 mg TIAC ORAL 01/09/19 06:30 02/08/19 06:29 01/14/19 06:05 Nitroglycerin (Ntg) 1 patch Q24H TDERMAL 01/11/19 14:00 02/10/19 13:59 01/13/19 13:09 Pantoprazole (Protonix) 40 mg EVERY 12 HOURS ORAL 01/08/19 21:00 02/07/19 20:59 01/14/19 10:02 Promethazine HCl/ Codeine (Phenergan with Codeine) 5 ml Q4H PRN ORAL For Cough 01/11/19 12:15 02/10/19 12:14 01/13/19 11:31 Sevelamer Carbonate (Renvela) 2,400 mg THREE TIMES A DAY ORAL 01/09/19 18:00 02/08/19 08:59 01/14/19 10:02 Isabelle Mitchell MD Jan 14, 2019 11:50
[2019-01-14 12:00] VITALS: BP 116/80
[2019-01-14] MEDS: Nitroglycerin Patch 0.4mg TDERMAL SCH (14:00)
--- NOTE | 2019-01-14 14:00 | NUR ---
NURSE NOTES: Patient got HD, tolerating well 2L out. Will continue to monitor.
--- NOTE | 2019-01-14 14:11 | General Progress Note ---
Assessment/Plan Problem List: (1) Pleural effusion ICD Codes: J90 - Pleural effusion, not elsewhere classified SNOMED: 32306846 (2) Cardiomyopathy ICD Codes: I42.9 - Cardiomyopathy, unspecified SNOMED: 63547657 (3) ESRD (end stage renal disease) on dialysis ICD Codes: N18.6 - End stage renal disease; Z99.2 - Dependence on renal dialysis SNOMED: 284649206 (4) Diabetic gastroparesis ICD Codes: E11.43 - Type 2 diabetes mellitus with diabetic autonomic (poly) neuropathy; K31.84 - Gastroparesis SNOMED: 477906839 (5) Anemia ICD Codes: D64.9 - Anemia SNOMED: 966159142 Status: stable Assessment/Plan DC home on current meds HD and UF done 01/13 repeat 01/14 and DC add imdure add nitro dig coreg and adjust dose 2D echo LOW EjFx Anti GERD Meds HHN Rx Pulm and Cardio advise BS control Repeat CXR post HD Subjective ROS Limited/Unobtainable: No Constitutional: Reports: other - feels better Allergies: Coded Allergies: No Known Allergies (Unverified , 12/16/17) Objective Last 24 Hour Vital Signs Date Time Temp Pulse Resp B/P (MAP) Pulse Ox O2 Delivery O2 Flow Rate FiO2 01/14/19 13:34 84 18 99 Room Air 21 01/14/19 12:00 98.4 82 16 116/80 (92) 100 82 01/14/19 11:33 83 01/14/19 10:03 89 121/70 01/14/19 10:02 121/70 01/14/19 09:00 Room Air 01/14/19 08:33 89 20 98 Room Air 21 01/14/19 08:22 88 20 96 Room Air 21 01/14/19 08:00 97.9 90 18 121/70 (87) 99 90 01/14/19 07:29 85 01/14/19 06:00 132/76 01/14/19 04:20 79 01/14/19 04:20 97.7 86 20 132/76 (94) 98 86 01/14/19 00:00 98.1 82 20 114/75 (88) 98 82 01/14/19 00:00 78 01/13/19 23:49 98.2 01/13/19 21:35 109/73 3/20/19 21:00 Room Air 01/13/19 20:38 81 109/73 01/13/19 20:00 98.2 81 20 109/73 (85) 99 81 01/13/19 20:00 79 01/13/19 19:27 Room Air 01/13/19 19:27 Room Air 01/13/19 16:00 98.6 85 20 123/80 (94) 99 85 01/13/19 16:00 86 Intake and Output 01/13/19 01/14/19 18:59 06:59 Intake Total 360 ml 240 ml Balance 360 ml 240 ml Intake Oral 360 ml 240 ml Current Medications Medications (Trade) Dose Ordered Sig/Maci Route PRN Reason Start Time Stop Time Status Last Admin Dose Admin Albuterol Sulfate (Proventil) 2.5 mg TIDRT HHN 01/09/19 15:45 01/14/19 15:44 01/14/19 13:34 Atorvastatin Calcium (Lipitor) 10 mg BEDTIME ORAL 01/08/19 21:00 02/07/19 20:59 01/13/19 20:39 Carvedilol (Coreg) 25 mg EVERY 12 HOURS ORAL 01/12/19 21:00 02/10/19 20:59 01/14/19 10:03 Dextrose (Dextrose 50%) 25 ml Q30M PRN IV Hypoglycemia 01/08/19 21:45 02/07/19 21:44 Dextrose (Dextrose 50%) 50 ml Q30M PRN IV Hypoglycemia 01/08/19 21:45 02/07/19 21:44 Digoxin (Lanoxin) 0.125 mg QOD ORAL 01/13/19 09:00 02/12/19 08:59 Diphenhydramine HCl (Benadryl) 25 mg Q6H PRN IVP Itching and during HD 01/11/19 10:30 02/10/19 10:29 Docusate Sodium (Colace) 100 mg TID ORAL 01/09/19 09:00 02/08/19 08:59 01/14/19 10:02 Folic Acid (Folate) 3 mg DAILY ORAL 01/09/19 12:45 02/08/19 12:44 01/14/19 10:02 Hydralazine HCl (Apresoline) 25 mg Q8HR ORAL 01/12/19 14:00 02/08/19 21:59 01/12/19 21:34 Hydromorphone HCl (Dilaudid) 0.5 mg Q4H PRN IVP For Pain 01/08/19 20:15 01/15/19 20:14 01/13/19 23:18 Insulin Aspart (NovoLOG) BEFORE MEALS AND HS SUBQ 01/08/19 22:00 02/07/19 21:59 01/13/19 20:50 Isosorbide Mononitrate (Imdur) 30 mg DAILY ORAL 01/13/19 09:00 02/12/19 08:59 01/14/19 10:02 Levofloxacin 50 ml @ 50 mls/hr Q48H IVPB 01/14/19 18:00 01/21/19 17:59 Metoclopramide HCl (Reglan) 5 mg TIAC ORAL 01/09/19 06:30 02/08/19 08:59 01/14/19 06:05 Metoclopramide HCl (Reglan) 10 mg Q6H PRN IVP Nausea & Vomiting 01/08/19 20:30 02/07/19 20:29 01/13/19 08:59 Nateglinide (Starlix) 120 mg TIAC ORAL 01/09/19 06:30 02/08/19 06:29 01/14/19 06:05 Nitroglycerin (Ntg) 1 patch Q24H TDERMAL 01/11/19 14:00 02/10/19 13:59 01/13/19 13:09 Pantoprazole (Protonix) 40 mg EVERY 12 HOURS ORAL 01/08/19 21:00 02/07/19 20:59 01/14/19 10:02 Promethazine HCl/ Codeine (Phenergan with Codeine) 5 ml Q4H PRN ORAL For Cough 01/11/19 12:15 02/10/19 12:14 01/13/19 11:31 Sevelamer Carbonate (Renvela) 2,400 mg THREE TIMES A DAY ORAL 01/09/19 18:00 02/08/19 08:59 01/14/19 10:02 Laboratory Tests 01/14/19 06:10: White Blood Count 7.0, Red Blood Count 3.92L, Hemoglobin 10.6L, Hematocrit 35.6L , Mean Corpuscular Volume 91, Mean Corpuscular Hemoglobin 27.0, Mean Corpuscular Hemoglobin Concent 29.8L, Red Cell Distribution Width 18.3H, Platelet Count 124L, Mean Platelet Volume 10.5H, Neutrophils (%) (Auto) 59.2, Lymphocytes (%) (Auto) 26.2, Monocytes (%) (Auto) 8.9, Eosinophils (%) (Auto) 4.9H, Basophils (%) (Auto) 0.8, Sodium Level 140, Potassium Level 4.7, Chloride Level 100, Carbon Dioxide Level 25, Anion Gap 15, Blood Urea Nitrogen 52H, Creatinine 9.4H, Estimat Glomerular Filtration Rate 5.5, Glucose Level 67L, Calcium Level 9.3, Phosphorus Level 6.2H, Total Bilirubin 0.6, Aspartate Amino Transf (AST/SGOT) 13L, Alanine Aminotransferase (ALT/SGPT) 9L, Alkaline Phosphatase 151H, Troponin I 0.084H, Total Protein 6.8, Albumin 2.8L, Globulin 4.0, Albumin/Globulin Ratio 0.7L Height (Feet): 5 Height (Inches): 4.00 Weight (Pounds): 168 General Appearance: no apparent distress Cardiovascular: normal rate Respiratory/Chest: decreased breath sounds Thiago Galan MD Jan 14, 2019 14:11
[2019-01-14] MEDS ORDERED: OMEPRAZOLE40 M1 ORAL ×4 (14:42→14:47)
[2019-01-14] MEDS ORDERED: RENVELA800 MG ORAL (14:44)
[2019-01-14] MEDS ORDERED: RENVELA2.4 GM ORAL (14:49)
[2019-01-14] MEDS ORDERED: COLACE100 MG ORAL (14:51)
[2019-01-14] MEDS ORDERED: ISOSORBIDE MONO30 M1 PO (14:53)
[2019-01-14] MEDS ORDERED: STARLIX120 MG ORAL (14:54)
[2019-01-14] MEDS ORDERED: COREG25 MG ORAL (14:55)
[2019-01-14] MEDS ORDERED: DIGOXIN ELIX0.125 MG PO (14:59)
[2019-01-14] MEDS ORDERED: HYDRALAZINE HCL25 M1 ORAL (15:00)
[2019-01-14] MEDS ORDERED: METOCLOPRAMIDE H5 M1 ORAL (15:02)
[2019-01-14] MEDS ORDERED: DIGOXIN125 MCG ORAL (15:05)
--- NOTE | 2019-01-14 15:45 | NUR ---
Discharge: Patient is being discharged from medical care. Awake, alert and oriented. After care instructions and discharge prescriptions were given and Patient verbalized understanding of After care instructions. Patient signed patient consent upon discharge. All medical devices such as IV, residential monitor and ID band were removed. Patient ambulated out with her friend and all personal belongings with steady gait.
[2019-01-14] MEDS ORDERED: Levofloxacin 250mg/D5W 50ml IVPB SCH (18:00)
--- NOTE | 2019-01-15 11:47 | Discharge Summary ---
Discharge Summary Discharge Summary _ DATE OF ADMISSION: 01/08/2019 DATE OF DISCHARGE: 01/14/2019 DISCHARGED BY: Dr. Thiago Galan CONSULTANTS: Dr. Isabelle Paredes [facility] HOSPITAL COURSE: Patient is a 43-year-old female with history of renal failure, on hemodialysis every Friday, and Friday,, diabetes mellitus, and cardiomyopathy, presented to ED with complaints of acute onset of chest discomfort. She had intermittent chest pain that became worse on the day of admission. She complained of shortness of breath. She had episodes of cough with brownish sputum. She denied any other injury. 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 On evaluation at ED, blood work did not show any leukocytosis. Hemoglobin and hematocrit were stable. Potassium was 4. BUN 43, creatinine 8.3. Troponin was 0.048 which was normal. CK-MB normal. She had an EKG done that showed normal sinus rhythm with poor R wave progression, no acute changes. Chest x- ray showed confluent opacities in the left lower hemithorax. She was admitted for evaluation of ACS, pleural effusion and renal failure. Cardiac enzymes were monitored. Inpatient Coder was consulted. Patient has a history of coronary artery disease and underwent bypass surgery in 2016. She had a recent stress nuclear scan done on September 2018, which revealed ejection fraction of 42% and she had lateral reversible 10% defect. After that, she underwent coronary angiography by Dr. Min and her coronary grafts were patent. Patient has prosthetic mitral valve. Her current electrocardiogram showed sinus rhythm with intraventricular conduction delay without acute ST or T wave changes. Claim Processing Specialist was consulted. Patient was given respiratory treatment. She was started on IV levofloxacin. She was given anti tussives. She was continued on inpatient hemodialysis. Kidney ultrasound showed atrophic bilateral kidneys. A repeat echocardiogram was done. In comparison with the last echocardiogram done in 2017, left ventricular function decreased to EF 35%, PAS P increased to 61 mmHg, peak aortic valve gradient of 42 mmHg (mean of 20), peak mitral valve gradient 42 mmHg (mean of 23). Patient needed more fluid and sodium restriction and more ultrafiltrate. She was given digoxin, Coreg, and Imdur. She was given Lipitor. Venous duplex scan of lower extremity was negative for acute DVT. Repeat chest x-ray showed large left pleural effusion , however, was unchanged, over 4 days. Patient had less cough and had a small amount of blood in the sputum. Aspirin and heparin were discontinued by fur vault attendant. Sputum culture showed growth of normal upper respiratory nirav. Antibiotics discontinued. She was cleared for discharge home. To follow-up with Dr. Min to evaluate MV prosthesis. FINAL DIAGNOSES: Acute systolic CHF Aortic stenosis Prosthetic mitral valve stenosis Pulmonary hypertension Pleural effusion Coronary artery disease a status post CABG and cath Cardiomyopathy End-stage renal disease on hemodialysis Diabetes type 2 with gastroparesis Anemia Purulent bronchitis DISPOSITION: Patient was discharged home. DISCHARGE MEDICATIONS: Refer to Discharge Medication List. DISCHARGE INSTRUCTIONS: Follow-up in a week. I have been assigned to complete a discharge summary on this account, I was not involved with the patient's management. Dinora Daniel NP Jan 15, 2019 11:47
== END 2019-01-14 13:45 | disposition home or self-care (01) | DRG 291 ==
LOC: EMR 17:00 → 2E 18:02 → EDBEDREQ 18:32
PROC: 5A1D70Z Performance of Urinary Filtration, Intermittent, Less than 6 Hours Per Day (ICD-10-PCS; principal; 2019-01-14)
DX: I13.2 Hypertensive heart and chronic kidney disease with heart failure and with stage 5 chronic kidney disease, or end stage renal disease (principal); I50.21 Acute systolic (congestive) heart failure; N18.6 End stage renal disease; I42.9 Cardiomyopathy, unspecified; Z99.2 Dependence on renal dialysis; K31.84 Gastroparesis; E11.22 Type 2 diabetes mellitus with diabetic chronic kidney disease; I25.10 Atherosclerotic heart disease of native coronary artery without angina pectoris; J45.909 Unspecified asthma, uncomplicated; E11.43 Type 2 diabetes mellitus with diabetic autonomic (poly)neuropathy; I27.20 Pulmonary hypertension, unspecified; K21.9 Gastro-esophageal reflux disease without esophagitis; I25.2 Old myocardial infarction; D64.9 Anemia, unspecified; I35.0 Nonrheumatic aortic (valve) stenosis; J41.1 Mucopurulent chronic bronchitis; Z95.2 Presence of prosthetic heart valve; Z89.511 Acquired absence of right leg below knee; Z89.432 Acquired absence of left foot; Z95.1 Presence of aortocoronary bypass graft; Z86.73 Personal history of transient ischemic attack (TIA), and cerebral infarction without residual deficits
CPT/HCPCS: 36415; 71045; 76770; 80053; 80061; 80162; 82550; 82553; 82607; 82728; 82746; 82962; 83036; 83540; 83550; 83690; 83735; 83880; 84100; 84443; 84484; 84550; 85007; 85025; 85610; 86140; 87070; 87081; 87205; 93005; 93306; 93970; 94640; 94664; 99285; J1815; J2765